=== PATIENT | female | born 1955 | race Caucasian/White ===

== ENCOUNTER 2017-11-29 16:12 | Inpatient (IN) | payer MEDICARE, MEDICAID ==
[2017-11-29] MEDS ORDERED: Influenza Vaccine 0.5 mL Syr IM ONE (17:09)
[2017-11-29] MEDS ORDERED: Levofloxacin 500mg/100mL 500 MG/100 ML BAG IV ONE ×2 (17:23→17:36)
[2017-11-29] MEDS ORDERED: Ferrous Sulfate 325 MG TAB PO ONE ×2 (17:27→17:37)
[2017-11-29 17:42] LABS: % BASOPHILS 0.5 % (0.0-2.0); % EOSINOPHILS 1.7 % (0.0-5.0); % LYMPHOCYTES 25.4 % (20.0-50.0); % NEUTROPHILS 63.4 % (40.0-80.0); EOSINOPHILE ABSOLUTE 0.1 Th/cmm (0.1-0.4); HEMATOCRIT 42.6 % (41.0-60); HEMOGLOBIN 14.1 gm/dL (12-16); LYMPHOCYTE ABSOLUTE 2.1 Th/cmm (1.5-3.0); MEAN CELL VOLUME 85.1 fl (81-100); MEAN CORPUSCULAR HEMOGLOBIN 28.1 pg (27.0-31.0); MEAN PLATELET VOLUME 9.1 fl; MONOCYTE ABSOLUTE 0.7 Th/cmm (0.3-1.0); NEUTROPHILE ABSOLUTE 5.4 Th/cmm (1.8-8.0); RED BLOOD COUNT 5.01 Mil/cmm (3.80-5.10); RED CELL DISTRIBUTION WIDTH 12.4 % (11.5-20.0); WHITE BLOOD COUNT 8.3 Th/cmm (4.8-10.8)
[2017-11-29 17:43] LABS: PLATELET COUNT 338 Th/cmm (150-400)
[2017-11-29 17:57] LABS: ALB/GLOB RATIO 1.1 (1.0-1.8); ALBUMIN 3.3 gm/dL (3.7-5.3); ALKALINE PHOSPHATASE 78 U/L (34-104); ANION GAP 9.8 (7.0-16.0); BILIRUBIN,TOTAL 0.3 mg/dL (0.3-1.0); BUN - UREA NITROGEN 18 mg/dL (7-25); CALCIUM SERUM 9.9 mg/dL (8.6-10.3); CARBON DIOXIDE 27.5 mEq/L (21.0-31.0); CHLORIDE 98 mEq/L (98-107); CREATININE - SERUM 0.6 mg/dL (0.6-1.2); GFR AFRICAN-AMERICAN > 60.0 ml/min (>90); GFR NON AFRICAN-AMERICAN > 60.0 ml/min; GLUCOSE 289 mg/dL (70-105); POTASSIUM SERUM 3.3 mEq/L (3.5-5.1); SGOT 7 U/L (13-39); SGPT/ALT 7 U/L (7-52); SODIUM SERUM 132 mEq/L (136-145); TOTAL PROTEIN,SERUM 6.3 gm/dL (6.0-8.3)
--- NOTE | 2017-11-29 18:46 | ED Physician Chart ---
ED Chief Complaint/HPI - Patient Information Date Seen:: 11/29/17 Time Seen:: 18:30 Chief Complaint:: auditory hallucinations History of Present Illness:: Patient was sent here for hearing voices which she denies. Patient's chief complaint is right leg numbness and pain for the last 2 months. A couple of days ago patient was hit above the left eyebrow by a thrown shampoo bottle. Allergies:: Allergies Allergy/AdvReac Type Severity Reaction Status Date / Time No Known Allergies Allergy Verified 09/04/16 16:50 Vitals:: Vital Signs - 8 hr 11/29/17 17:00 Temp 97.6 F HR 70 RR 18 BP 154/80 O2 Sat % 100 ED Past Medical History - Past Medical History Past Medical History: Other (bipolar and schizophrenia) Family History: Heart disease Social History: Smoker, No Alcohol, Care Facility (smokes 2 PPD and lives in [facility] and [facility]) Surgical History: other (laparotomy for swallowing half a scissors) Psychiatricy History: Schizophrenia, Bipolar Medication: Reviewed Family Medical History - Family Member Mother History Unknown: Yes Ethnicity: Living Status: Hx Family Cancer: No Hx Family Coronary Artery Disease: No Hx Family Congestive Heart Failure: No Hx Family Hypertension: No Hx Family Stroke: No Hx Family Diabetes: No Hx Family Seizures: No Hx Family Dementia: No Hx Family AIDS: No Hx Family HIV: No Hx Family COPD: No Hx Family Hepatitis: No Hx Family Psychiatric Problems: No Hx Family Tuberculosis: No ED Physical Exam - Physical Examination General/Constitutional: Alert Other Gen/Cons comments:: dishevelled; A and O to approximate date Head: Atraumatic Eyes: Lids, conjuctiva normal, PERRL Other Skin comments:: dirt noted on skin ENMT: External ears, nose nl, TM canals nl, Nasal exam nl, Oropharynx nl Other ENMT comments:: 3/4 gum retraction and peridontal disease Neck: No nuchal rigidity Respiratory: Nl effort/Exclusion, No Wheeze/Rhonchi/Rales Other Respiratory comments:: diffuse decreased breath sounds Cardio Vascular: RRR, NL S1 S2 Other Cardio Vascular comments:: 2/6 systolic murmur GI: No tenderness/rebounding/guarding, No organomegaly : No CVA tenderness Other Extremities comments:: both feet warm and dorsalis pedis pulses 3/4 Neuro/Psych: No focal deficits ED Labs/Radiology/EKG Results - Lab Results Results: Laboratory Tests 11/29/17 11/29/17 11/29/17 17:35 17:35 17:35 WBC 8.3 RBC 5.01 Hgb 14.1 Hct 42.6 MCV 85.1 MCH 28.1 MCHC Differential 33.0 RDW 12.4 Plt Count 338 D MPV 9.1 Neutrophils % 63.4 Lymphocytes % 25.4 Monocytes % 9.0 Eosinophils % 1.7 Basophils % 0.5 Sodium 132 L Potassium 3.3 L Chloride 98 Carbon Dioxide 27.5 Anion Gap 9.8 BUN 18 Creatinine 0.6 Est GFR ( Amer) > 60.0 Est GFR (Non-Af Amer) > 60.0 BUN/Creatinine Ratio 30.0 Glucose 289 H Calcium 9.9 Magnesium 1.5 L Total Bilirubin 0.3 AST 7 L ALT 7 Alkaline Phosphatase 78 B-Natriuretic Peptide Total Protein 6.3 Albumin 3.3 L Globulin 3.0 Albumin/Globulin Ratio 1.1 11/29/17 17:35 WBC RBC Hgb Hct MCV MCH MCHC Differential RDW Plt Count MPV Neutrophils % Lymphocytes % Monocytes % Eosinophils % Basophils % Sodium Potassium Chloride Carbon Dioxide Anion Gap BUN Creatinine Est GFR ( Amer) Est GFR (Non-Af Amer) BUN/Creatinine Ratio Glucose Calcium Magnesium Total Bilirubin AST ALT Alkaline Phosphatase B-Natriuretic Peptide 58.2 Total Protein Albumin Globulin Albumin/Globulin Ratio - Radiology Results Results: CXR negative - EKG Interpretations Rate & Rhythm: normal sinus rhythm with a rate of 69 [place]: normal axis Comments:: About [address] elevation in V1 and V2 ED Septic Shock - . Is Septic Shock (SBP<90, OR Lactate>4 mmol\L) present?: No - <6hrs of presentation: Vital Signs: Vital Signs - 8 hr 11/29/17 17:00 Temp 97.6 F HR 70 RR 18 BP 154/80 O2 Sat % 100 ED Reassessment (Disposition) - Reassessment Reassessment Condition:: Unchanged - Diagnosis Diagnosis:: Past auditory hallucinations; nicotine abuse; bipolar; schizophrenia - Patient Disposition Admitted to:: [facility] Admitting Medical Physician:: Hubert Sheehan Admitting Psych Physician:: Jerry Cotto Condition at Disposition:: Stable
[2017-11-29 19:03] LABS: CHOLESTEROL 141 mg/dL (<200); HDL -HIGH DENSITY LIPOPROTEIN 60 mg/dL (23-92); TRIGLYCERIDES 135 mg/dL (<150)
--- NOTE | 2017-11-29 19:33 | ER Physician Documentation ---
DATE OF SERVICE: 11/29/2017 EMERGENCY ROOM EVALUATION AND TREATMENT REPORT Female patient of 62-year-old. The patient was seen on by me Dr. Meyer in bed #6. The history is taken by me and the triage nurse, Leila, took the triage nurse history and evaluated the patient also. Thanks to him. HISTORY OF PRESENT ILLNESS: The patient to me gave a history that she is feeling weak, but she can walk to the bathroom. She is feeling weak for the past 2 weeks or so, more and more weaker. It looks like according to her, her administrator health care facility does not want her to be staying there. Her doctor's name is Dr. Mcclure and according to her, she says, Dr. Mcclure also does not want her to be coming over there. The patient came from [facility] somewhere. The patient was evaluated by the nurse, Leila. The history says that the patient is having failure to thrive. The patient is known to have diabetes mellitus. From the thing, I can see that the patient has hypertension. The patient has diabetes mellitus, hypercholesterolemia, and patient has anemia. The patient is on risperidone. The patient's vital signs were taken by the nurse showing 97.6, pulse of 70, respirations 18, blood pressure 154/80, oxygen saturation 100%, height of 5 feet 3 inches, weight 215 pounds. Last menstrual period is unknown. PAST MEDICAL HISTORY: Diabetes, hypertension, history of abdominal intestinal obstruction surgery done about 14 years ago. At one point in time, she says she was , but she does not remember much about that status. She says her brother comes and sees her. FAMILY HISTORY: Parents are . The patient has 5 brothers and 1 sister and almost everybody has diabetes and some degree of hypertension. One of the brothers comes in sees her every Wednesday according to her. CURRENT MEDICATIONS: Includes the following: Simvastatin 10 mg p.o. at bedtime, glyburide 5 mg p.o. daily, aspirin 81 mg once a day, metformin 500 mg p.o. daily, metoprolol 25 mg p.o. daily, risperidone 2 mg p.o. b.i.d., benazepril 20 mg p.o. daily, ferrous sulfate 325 mg p.o. daily. The patient's history of chief complaints is that the patient over the past 2 months was sick. For the past 2 months, the patient's right leg is weak and more weaker in the past 2 weeks. She has a walker at home, but she does not use a walker. She goes to the bathroom limping, but she does go to the bathroom. She says her upper body strength is fairly decent. She has diabetes for many many years. She has no cough, no shortness of breath. No history of pneumonia, TB, pulmonary embolism, COPD, emphysema, bronchitis. REVIEW OF SYSTEMS: EYES: No history of double vision, blurring, blindness. CENTRAL NERVOUS SYSTEM: Denied any TIA, stroke, encephalitis, meningitis. The right leg is markedly weak. She does not know for sure whether she had paralysis or CVA in the right leg. She might need a CT scan of the brain to be done to see if there is any stroke in the past or any other pathology that might be on the left side of the brain to give rise to right lower extremity paralysis. CARDIAC ALLISON: The patient has no history of angina pectoris, myocardial infarction, rheumatic fever, valvular heart disease, pericardial disease. She does not take any nitroglycerin tablets. BONES AND JOINTS: No apparent complaints except for the right lower extremity is weak. Lower extremities both are weaker. GENITOURINARY: No burning, no frequency, no dysuria. She wears diapers. DIAGNOSTIC DATA: Her EKG was done, which showed normal sinus rhythm and likely there is suggestion of left ventricular high voltage, but there is no definite hypertrophy of the left ventricle is noted. Left axis deviation has been noted. There is no cardiac arrhythmia noted in this patient. PHYSICAL EXAMINATION: GENERAL: The patient appears to be awake, alert, oriented, not in any acute or severe cardiorespiratory distress. Conjunctivae pink. Sclerae white. HEENT: Normal. The patient's right lower extremity has a power of almost half to one at the most. The patient's peripheral pulses are all good volume bounding. Pulses in upper extremities are normal. Neck veins are not distended. Jugular venous pressure is normal. Carotids are normal. without any bruit. No cyanosis, petechia, ecchymosis is noted. All the nails in upper and lower extremities are dirty. CHEST: Reveals trachea to be central. Fairly good air entry in both lungs without any rales, rhonchi, or bronchial breathing. ABDOMEN: Soft, benign. Has a midline surgical scar of previous intestinal obstruction. Liver is not enlarged. Spleen is not enlarged. No free fluid in the abdominal cavity. Bowel sounds are normal. CENTRAL NERVOUS SYSTEM: As I mentioned except for the right lower extremity weakness, the left lower extremity has slight weakness, but the right has almost power of 0-1/2. Otherwise, central nervous system is normal. CLINICAL IMPRESSION: 1. The patient presented with generalized weakness and fatigue. Not able to walk well for the past 2 months, more so over the past 2 weeks' duration and weakness in the right lower extremity for past 2 months and she is able to go to the bathroom hopping and using her left leg more than the right leg, but does not use her walker. I am not sure why. 2. The patient has diabetes mellitus and she is on oral hypoglycemic medication. She has type 2 diabetes mellitus. 3. The patient has hypertension and hypertensive heart disease. 4. The patient may be having a previous history of stroke giving rise to paralysis in the right leg. 5. The patient is allergic to Cogentin, Haldol and sulfa. 6. History of intestinal obstruction followed by surgery. 7. Hypercholesterolemia, the patient has it. 8. The patient is on risperidone, perhaps for some mental problem, that she may be a psychosis. She is allergic to sulfa meds also, Haldol and Cogentin and sulfa gives rise to rash. The patient has weakness and failure to thrive. The plan is to get all the lab workup, patient monitor, and EKG was done. All the labs has been ordered. Her current medication etc., has been ordered. Urine for culture and sensitivity has been ordered. The patient will need 1800 calorie, low cholesterol, low saturated fat diet. Urine culture was ordered. Magnesium has been ordered. Cardiac enzymes we will order and see if we can find anything. The patient has a history of smoking 2 packs of cigarettes a day, so by default she has a history of COPD. Thank you again, around 6:00 Dr. Soto will come; by that time whatever I could do, I will do it and then endorse it back to him. I will speak to the nurse about this patient also. JOB# [id number]
[2017-11-29] MEDS ORDERED: Mag Sulfate 2gm/50mL Premix 2 GM/50 ML BAG IV ONE ×2 (20:06→20:10)
[2017-11-29] MEDS ORDERED: Potassium Chloride 20 mEq ER Tab PO ONE ×2 (20:06→20:11)
[2017-11-29 22:32] LABS: URINE MICROSCOPIC INDICATED? YES; URINE SOURCE CLEAN C
[2017-11-29 22:35] LABS: URINE BILIRUBIN NEGATIVE (NEGATIVE); URINE BLOOD NEGATIVE (NEGATIVE); URINE GLUCOSE (UA) >=1000 mg/dL (NEGATIVE); URINE KETONE TRACE mg/dL (NEGATIVE); URINE LEUKOCYTE ESTERASE NEGATIVE (NEGATIVE); URINE NITRATE NEGATIVE (NEGATIVE); URINE PH 5.5 (4.6 - 8.0); URINE PROTEIN NEGATIVE (NEGATIVE); URINE UROBILINOGEN 0.2 E.U./dL (0.2 - 1.0)
[2017-11-29 22:48] LABS: URINE CLARITY CLEAR (CLEAR); URINE COLOR YELLOW
[2017-11-29 22:50] LABS: URINE RBC 0-2 /hpf (0-5)
[2017-11-29 22:51] LABS: URINE BACTERIA MODERATE /hpf (NONE SEEN); URINE EPITHELIAL CELLS MODERATE /lpf (FEW)
[2017-11-29] MEDS ORDERED: Maalox 30 mL Cup PO PRN (23:12)
[2017-11-29] MEDS ORDERED: Magnesium Hydroxide (MOM) 30 mL UDC PO PRN (23:12)
[2017-11-29] MEDS ORDERED: Albuterol Nebulizer 2.5mg/3mL HHN PRN (23:14)
[2017-11-29] MEDS ORDERED: Ipratropium Neb 0.5 mg/2.5 mL UD HHN PRN (23:14)
[2017-11-30] MEDS: INSULIN ASPART SLIDING SCALE 100 UNITS/ML UNIT SUBQ SCH ×4 (06:42→21:00)
--- NOTE | 2017-11-30 08:13 | Diagnostic Imaging Report ---
CHEST X-RAY: AP view INDICATION: Pneumonia COMPARISON: Chest x-ray 03/30/2017 FINDINGS: Chronic lung changes are seen with no focal consolidation or effusions. There is faint linear density along the right lateral lung zone possibly related to a skinfold. No gross pneumothorax identified. Heart size is normal. Degenerative changes of the spine are noted. IMPRESSION: Chronic lung changes with no focal consolidation identified. Faint linear density along the right lateral lung zone probably related to a skin fold. No gross pneumothorax is identified. If indicated short-term repeat x-ray may be obtained for further assessment.
[2017-11-30] MEDS: Ferrous Sulfate 325 MG TAB PO SCH (10:08)
[2017-11-30] MEDS: Multivitamin Tab PO SCH (10:08)
[2017-11-30 12:20] LABS: A1C % 11.7 % (4.0-6.0)
--- NOTE | 2017-11-30 17:40 | Internal Medicine Prog Note ---
Internal Medicine Subjective - Subjective Service Date: 11/30/17 ([facility] [id number]) Internal Medicine Objective - Results Result Diagrams: 11/29/17 17:35 11/29/17 17:35 Recent Labs: Laboratory Last Values WBC 8.3 Th/cmm (4.8-10.8) 11/29/17 17:35 RBC 5.01 Mil/cmm (3.80-5.10) 11/29/17 17:35 Hgb 14.1 gm/dL (12-16) 11/29/17 17:35 Hct 42.6 % (41.0-60) 11/29/17 17:35 MCV 85.1 fl (81-100) 11/29/17 17:35 MCH 28.1 pg (27.0-31.0) 11/29/17 17:35 MCHC Differential 33.0 pg (28.0-36.0) 11/29/17 17:35 RDW 12.4 % (11.5-20.0) 11/29/17 17:35 Plt Count 338 Th/cmm (150-400) D 11/29/17 17:35 MPV 9.1 fl 11/29/17 17:35 Neutrophils % 63.4 % (40.0-80.0) 11/29/17 17:35 Lymphocytes % 25.4 % (20.0-50.0) 11/29/17 17:35 Monocytes % 9.0 % (2.0-10.0) 11/29/17 17:35 Eosinophils % 1.7 % (0.0-5.0) 11/29/17 17:35 Basophils % 0.5 % (0.0-2.0) 11/29/17 17:35 Sodium 132 mEq/L (136-145) L 11/29/17 17:35 Potassium 3.3 mEq/L (3.5-5.1) L 11/29/17 17:35 Chloride 98 mEq/L (98-107) 11/29/17 17:35 Carbon Dioxide 27.5 mEq/L (21.0-31.0) 11/29/17 17:35 Anion Gap 9.8 (7.0-16.0) 11/29/17 17:35 BUN 18 mg/dL (7-25) 11/29/17 17:35 Creatinine 0.6 mg/dL (0.6-1.2) 11/29/17 17:35 Est GFR ( Amer) > 60.0 ml/min (>90) 11/29/17 17:35 Est GFR (Non-Af Amer) > 60.0 ml/min 11/29/17 17:35 BUN/Creatinine Ratio 30.0 11/29/17 17:35 Glucose 289 mg/dL (70-105) H 11/29/17 17:35 POC Glucose 287 MG/DL (70 - 105) H 11/30/17 06:02 Hemoglobin A1c % 11.7 % (4.0-6.0) H 11/29/17 17:35 Calcium 9.9 mg/dL (8.6-10.3) 11/29/17 17:35 Magnesium 1.5 mg/dL (1.9-2.7) L 11/29/17 17:35 Total Bilirubin 0.3 mg/dL (0.3-1.0) 11/29/17 17:35 AST 7 U/L (13-39) L 11/29/17 17:35 ALT 7 U/L (7-52) 11/29/17 17:35 Alkaline Phosphatase 78 U/L (34-104) 11/29/17 17:35 Troponin I 0.01 ng/mL (0.01-0.05) 11/29/17 17:35 C-Reactive Protein 0.3 mg/dL (0.0-0.9) 11/29/17 17:35 B-Natriuretic Peptide 58.2 pg/mL (5.0-100.0) 11/29/17 17:35 Total Protein 6.3 gm/dL (6.0-8.3) 11/29/17 17:35 Albumin 3.3 gm/dL (3.7-5.3) L 11/29/17 17:35 Globulin 3.0 gm/dL 11/29/17 17:35 Albumin/Globulin Ratio 1.1 (1.0-1.8) 11/29/17 17:35 Triglycerides 135 mg/dL (<150) 11/29/17 17:35 Cholesterol 141 mg/dL (<200) 11/29/17 17:35 LDL Cholesterol Direct 72 mg/dL (75-193) L 11/29/17 17:35 HDL Cholesterol 60 mg/dL (23-92) 11/29/17 17:35 TSH 3.62 uIU/ml (0.34-5.60) 11/29/17 17:35 Urine Source CLEAN C 11/29/17 21:30 Urine Color YELLOW 11/29/17 21:30 Urine Clarity CLEAR (CLEAR) 11/29/17 21:30 Urine pH 5.5 (4.6 - 8.0) 11/29/17 21:30 Ur Specific [place] >= 1.030 (1.005-1.030) 11/29/17 21:30 Urine Protein NEGATIVE mg/dL (NEGATIVE) 11/29/17 21:30 Urine Glucose (UA) >=1000 mg/dL (NEGATIVE) H 11/29/17 21:30 Urine Ketones TRACE mg/dL (NEGATIVE) 11/29/17 21:30 Urine Blood NEGATIVE (NEGATIVE) 11/29/17 21:30 Urine Nitrate NEGATIVE (NEGATIVE) 11/29/17 21:30 Urine Bilirubin NEGATIVE (NEGATIVE) 11/29/17 21:30 Urine Urobilinogen 0.2 E.U./dL (0.2 - 1.0) 11/29/17 21:30 Ur Leukocyte Esterase NEGATIVE (NEGATIVE) 11/29/17 21:30 Urine RBC 0-2 /hpf (0-5) 11/29/17 21:30 Urine WBC 10-25 /hpf (0-5) H 11/29/17 21:30 Ur Epithelial Cells MODERATE /lpf (FEW) 11/29/17 21:30 Urine Bacteria MODERATE /hpf (NONE SEEN) H 11/29/17 21:30 RPR NONREACTIVE (NONREACTIVE) 11/29/17 17:35 - Physical Exam Vitals and I&O: Vital Signs Temp 98.8 F 11/30/17 06:13 Pulse 64 11/30/17 10:07 Resp 20 11/30/17 12:40 BP 165/89 11/30/17 10:07 Pulse Ox 98 11/30/17 08:45 Intake & Output 11/29/17 11/30/17 11/30/17 18:59 06:59 18:59 Intake Total 120 Balance 120 Weight (lbs) 150 lb Intake: Oral 120 Other: # Voids 2 # Bowel Movements 0 Active Medications: Current Medications Acetaminophen (Tylenol) 650 mg PO Q4HR PRN PRN Reason: Mild Pain / Temp above 100 Stop: 01/28/18 23:11 Al Hydrox/Mg Hydrox/Simethicone (Maalox) 30 ml PO Q4HR PRN PRN Reason: GI DISTRESS Stop: 01/28/18 23:11 Albuterol Sulfate (Albuterol 2.5mg/3ml Neb Ud) 2.5 mg HHN Q4HRT PRN PRN Reason: Shortness of Breath Stop: 01/28/18 23:13 Aspirin (Aspirin) 325 mg PO DAILY [facility] Stop: 01/29/18 08:59 Last Admin: 11/30/17 10:07 Dose: 325 mg Atorvastatin Calcium (Lipitor) 80 mg PO DAILY [facility] PRN Reason: Protocol Stop: 01/29/18 08:59 Last Admin: 11/30/17 10:07 Dose: 80 mg Benazepril HCl (Lotensin) 20 mg PO DAILY [facility] Stop: 01/29/18 08:59 Last Admin: 11/30/17 10:07 Dose: 20 mg Ferrous Sulfate (Iron) 325 mg PO DAILY [facility] Stop: 01/29/18 08:59 Last Admin: 11/30/17 10:08 Dose: 325 mg Insulin Aspart (Novolog Insulin Sliding Scale) 0 units SUBQ ACHS [facility] PRN Reason: Protocol Stop: 01/29/18 07:29 Last Admin: 11/30/17 17:28 Dose: Not Given Ipratropium [place] (Atrovent Neb 0.5mg/2.5ml) 0.5 mg HHN Q4HRT PRN PRN Reason: Shortness of Breath Stop: 01/28/18 23:13 Lorazepam (Ativan) 0.5 mg PO Q4HR PRN; Protocol PRN Reason: Anxiety Stop: 12/29/17 23:11 Magnesium Hydroxide (Milk Of Magnesia) 30 ml PO HS PRN PRN Reason: Constipation Metformin HCl (Glucophage) 1,000 mg PO BID [facility] Stop: 01/29/18 08:59 Last Admin: 11/30/17 17:28 Dose: 1,000 mg Multivitamins/Vitamin C (Theragran) 1 tab PO DAILY [facility] Stop: 01/29/18 08:59 Last Admin: 11/30/17 10:08 Dose: 1 tab Risperidone (Risperdal) 0.5 mg PO BID [facility] PRN Reason: Protocol Stop: 01/29/18 16:59 Zolpidem Tartrate (Ambien) 5 mg PO HS PRN PRN Reason: Insomnia Stop: 01/28/18 23:11 Nutritional Asmnt/Malnutr-PDOC - Dietary Evaluation Malnutrition Findings (Please click <Entered> for more info): Nutritional Asmnt/Malnutrition Start: 11/30/17 15: 26 Text: Status: Complete Freq: Document 11/30/17 15:26 [email or web address] (Rec: 11/30/17 15:38 [email or web address]) Nutritional Asmnt/Malnutrition Patient General Information Nutritional Screening High Risk Diagnosis psychosis Pertinent Medical Hx/Surgical Hx bipolar, schzophreania, laparotomy for wallowing half a scissor Subjective Information Pt seen sitting in bed just finished her lunch tray at time of visit. Pt reported good appetite, likes roast beef, meatlaof, fruit, but no chicken. Spoke with RN, pt consumed 100% of breakfast this morning. Current Diet Order/ Nutrition Support CCHO low sodium, low cholersterol Pertinent Medications iron, novolog, glucophage, theragran Pertinent Labs 11/29 Na 132, K 3.3, Cl 98, BUN 18, Cr 0.6, Glucose 289, A1c 11.7, Mg 1.5, AST 7, ALT 7, Alb 3.3 11/30 POC 287 Nutritional Hx/Data Height 5 ft 5 in Height (Calculated Centimeters) 165.1 Current Weight (lbs) 150 lb Weight (Calculated Kilograms) 68.0 Weight (Calculated Grams) 45599.9 [place] Body Weight 125 % [place] Body Weight 120 Body Mass Index (BMI) 25.0 Weight Status Overweight GI Symptoms GI Symptoms None Last BM none Difficult in: None Skin Integrity/Comment: intact Estimated Nutritional Goals Calories/Kcals/Kg 25-30 Kcals Calculated [id number] based on IBW 57kg Protein g/k-1.2 Protein Calculated 57-68 Fluid: ml 1425-1710ml (1ml/kcal) Nutritional Problem 1. Problem Problem altered nutritin related lab values Etiology endocrine dysfunction and possible excessive carbohydrates intake Signs/Symptoms: Glucose 289, A1c 11.7, POC 287 Malnutrition Alert Protein-Calorie Malnutrition N/A Is there a minimum of two criteria No selected? Query Text:Check all the applicable criteria. A minimum of two criteria are recommended for diagnosis of either severe or non-severe malnutrition. Intervention/Recommendation Comments 1. Continue with [facility] diet as ordered. Encourage to limit carbohyrates intake and avoid sugar added food. Pt verbalized understanding and will follow the diet. 2. Monitor PO intake, wt, labs and skin integrity 3. F/U as low risk in 7 days, 12/07 Expected Outcomes/Goals Expected Outcomes/Goals 1. PO intake to meet at least 75% of nutritional needs. 2. Wt stability, skin to remain intact, labs to approach WNL.
--- NOTE | 2017-11-30 20:19 | History & Physical ---
ADMIT DATE: 11/30/2017 DICTATING FOR: Dr. Hubert Sheehan CHIEF COMPLAINT: Auditory hallucinations. HISTORY OF PRESENT ILLNESS: This is a 62-year-old female, is a halfway resident who was brought here to [facility] due to hearing voices. The patient is now admitted to the Geropsych Unit. PAST MEDICAL HISTORY: Bipolar, schizophrenia. FAMILY HISTORY: Noncontributory. SOCIAL HISTORY: The patient is a smoker, smokes 2 packs per day. The patient lives in a [facility]. MEDICATIONS: Please see medication reconciliation. REVIEW OF SYSTEMS: GENERAL: Denies any fevers and chills. CARDIOVASCULAR: Denies chest pain. RESPIRATORY: Denies shortness of breath. GASTROINTESTINAL: Denies nausea, vomiting, and abdominal pain. GENITOURINARY: Denies increased frequency or dysuria. All other systems are reviewed and are negative. PHYSICAL EXAMINATION: GENERAL: An elderly female, awake, alert, in no apparent distress. VITAL SIGNS: Temperature 98.8, heart rate 64, blood pressure 165/89, respirations 20, O2 98%. HEENT: Head normocephalic, atraumatic. NECK: Supple. No mass. LUNGS: Clear bilaterally. HEART: Regular rhythm. ABDOMEN: Soft, nontender. LABORATORY DATA: WBC 8.3, H and H 14.1 and 42.6, platelet of 338. Sodium 132, potassium 3.3, chloride of 98, BUN 18, creatinine 0.6, glucose of 287. ASSESSMENT: Acute UTI, hyponatremia, hypokalemia, psychosis, diabetes. PLAN: The patient to be admitted to the Geropsych Unit. We will keep the patient on a sliding scale. We will monitor the patient's glucose level. We will get repeat BMP labs for tomorrow to monitor the patient's potassium. We will continue to monitor this patient. JOB# [id number]
[2017-12-01] MEDS: INSULIN ASPART SLIDING SCALE 100 UNITS/ML UNIT SUBQ SCH ×4 (07:26→20:29)
[2017-12-01] MEDS: Ferrous Sulfate 325 MG TAB PO SCH (10:46)
[2017-12-01] MEDS: Multivitamin Tab PO SCH (10:47)
[2017-12-01 11:55] LABS: % BASOPHILS 0.7 % (0.0-2.0); % LYMPHOCYTES 15.6 % (20.0-50.0); % MONOCYTES 7.7 % (2.0-10.0); BASOPHILE ABSOLUTE 0.1 Th/cumm (0-0.2); EOSINOPHILE ABSOLUTE 0.1 Th/cmm (0.1-0.4); HEMATOCRIT 40.4 % (41.0-60); HEMOGLOBIN 13.7 gm/dL (12-16); LYMPHOCYTE ABSOLUTE 1.6 Th/cmm (1.5-3.0); MEAN CELL VOLUME 83.4 fl (81-100); MEAN CORPUSCULAR HEMOGLOBIN 28.3 pg (27.0-31.0); MEAN CORPUSCULAR HGB CONC 33.9 pg (28.0-36.0); MONOCYTE ABSOLUTE 0.8 Th/cmm (0.3-1.0); NEUTROPHILE ABSOLUTE 7.5 Th/cmm (1.8-8.0); PLATELET COUNT 298 Th/cmm (150-400); RED BLOOD COUNT 4.84 Mil/cmm (3.80-5.10); RED CELL DISTRIBUTION WIDTH 12.8 % (11.5-20.0)
[2017-12-01 11:56] LABS: WHITE BLOOD COUNT 10.1 Th/cmm (4.8-10.8)
--- NOTE | 2017-12-01 12:00 | Psychosocial Evaluation ---
DATE OF SERVICE: 11/30/2017 JUSTIFICATION FOR HOSPITALIZATION: Hearing voices, psychotic decompensation. CHIEF COMPLAINT: "I am here because of my leg and my diabetes." HISTORY OF PRESENT ILLNESS: A 62-year-old female states that she was recently discharged from [facility]; sent due to voices, psychotic decompensation, fixated on her leg numbness states she has diabetes. The patient is guarded, minimizing, not a very good historian, seems confused, disoriented, not quite sure why she is in the hospital. She denies overt depression, no anxiety, sleeping "okay." The patient was seen in the Emergency Room complaining of weakness for the past 2 weeks. Also noted failure to have thrive. PAST MEDICAL HISTORY: Diabetes, hypercholesterolemia, anemia. PAST PSYCHIATRIC HISTORY: The patient denies any psych history, but she is apparently on Risperdal. She states she has been to psychiatric hospitals before "[facility]." SOCIAL HISTORY: The patient states she is not , no kids. Denies any drugs of abuse. She has an address in [place]. MEDICATIONS: Noted. MENTAL STATUS EXAMINATION: Stated age, unkempt, fair eye contact. Speech within normal limits. Mood "just fine." Affect odd. Thought processes were disoriented. Denying any SI, no HI. The patient with voices, responding to internal stimuli. Insight poor. Judgment poor. PROVISIONAL DIAGNOSES: The patient with psychosis, unspecified; mood, unspecified; strong; rule out schizophrenia. Under medical, please see full H and P. ESTIMATED LENGTH OF STAY: 7-10 days. ASSESSMENT: The patient requiring inpatient hospitalization, psychotic decompensation, voices, seemingly confused, disoriented, unable to be cared for at a lower level of care. PLAN: We will continue to monitor. Restart Risperdal. Given the severity of her symptoms, she is not safe for discharge. CONDITIONS FOR DISCHARGE: Improved mood, improved affect, better control of her psychotic symptoms. [facility]# [id number]
[2017-12-01 12:25] LABS: ANION GAP 8.3 (7.0-16.0); BUN - UREA NITROGEN 19 mg/dL (7-25); CALCIUM SERUM 9.6 mg/dL (8.6-10.3); CARBON DIOXIDE 25.5 mEq/L (21.0-31.0); CHLORIDE 99 mEq/L (98-107); CREATININE - SERUM 0.5 mg/dL (0.6-1.2); GFR AFRICAN-AMERICAN > 60.0 ml/min (>90); GFR NON AFRICAN-AMERICAN > 60.0 ml/min; GLUCOSE 311 mg/dL (70-105); POTASSIUM SERUM 3.8 mEq/L (3.5-5.1); SODIUM SERUM 129 mEq/L (136-145)
--- NOTE | 2017-12-01 13:49 | Internal Medicine Prog Note ---
Internal Medicine Subjective - Subjective Service Date: 12/01/17 Patient seen and examined:: with staff Patient is:: awake, verbal, agitated, confused Per staff patient has:: tolerating meds Internal Medicine Objective - Results Result Diagrams: 12/01/17 11:42 12/01/17 11:42 Recent Labs: Laboratory Last Values WBC 10.1 Th/cmm (4.8-10.8) D 12/01/17 11:42 RBC 4.84 Mil/cmm (3.80-5.10) 12/01/17 11:42 Hgb 13.7 gm/dL (12-16) 12/01/17 11:42 Hct 40.4 % (41.0-60) L 12/01/17 11:42 MCV 83.4 fl (81-100) 12/01/17 11:42 MCH 28.3 pg (27.0-31.0) 12/01/17 11:42 MCHC Differential 33.9 pg (28.0-36.0) 12/01/17 11:42 RDW 12.8 % (11.5-20.0) 12/01/17 11:42 Plt Count 298 Th/cmm (150-400) 12/01/17 11:42 MPV 9.0 fl 12/01/17 11:42 Neutrophils % 75.0 % (40.0-80.0) 12/01/17 11:42 Lymphocytes % 15.6 % (20.0-50.0) L 12/01/17 11:42 Monocytes % 7.7 % (2.0-10.0) 12/01/17 11:42 Eosinophils % 1.0 % (0.0-5.0) 12/01/17 11:42 Basophils % 0.7 % (0.0-2.0) 12/01/17 11:42 Sodium 129 mEq/L (136-145) L 12/01/17 11:42 Potassium 3.8 mEq/L (3.5-5.1) 12/01/17 11:42 Chloride 99 mEq/L (98-107) 12/01/17 11:42 Carbon Dioxide 25.5 mEq/L (21.0-31.0) 12/01/17 11:42 Anion Gap 8.3 (7.0-16.0) 12/01/17 11:42 BUN 19 mg/dL (7-25) 12/01/17 11:42 Creatinine 0.5 mg/dL (0.6-1.2) L 12/01/17 11:42 Est GFR ( Amer) > 60.0 ml/min (>90) 12/01/17 11:42 Est GFR (Non-Af Amer) > 60.0 ml/min 12/01/17 11:42 BUN/Creatinine Ratio 38.0 12/01/17 11:42 Glucose 311 mg/dL (70-105) H 12/01/17 11:42 POC Glucose 287 MG/DL (70 - 105) H 11/30/17 06:02 Hemoglobin A1c % 11.7 % (4.0-6.0) H 11/29/17 17:35 Calcium 9.6 mg/dL (8.6-10.3) 12/01/17 11:42 Magnesium 1.5 mg/dL (1.9-2.7) L 11/29/17 17:35 Total Bilirubin 0.3 mg/dL (0.3-1.0) 11/29/17 17:35 AST 7 U/L (13-39) L 11/29/17 17:35 ALT 7 U/L (7-52) 11/29/17 17:35 Alkaline Phosphatase 78 U/L (34-104) 11/29/17 17:35 Troponin I 0.01 ng/mL (0.01-0.05) 11/29/17 17:35 C-Reactive Protein 0.3 mg/dL (0.0-0.9) 11/29/17 17:35 B-Natriuretic Peptide 58.2 pg/mL (5.0-100.0) 11/29/17 17:35 Total Protein 6.3 gm/dL (6.0-8.3) 11/29/17 17:35 Albumin 3.3 gm/dL (3.7-5.3) L 11/29/17 17:35 Globulin 3.0 gm/dL 11/29/17 17:35 Albumin/Globulin Ratio 1.1 (1.0-1.8) 11/29/17 17:35 Triglycerides 135 mg/dL (<150) 11/29/17 17:35 Cholesterol 141 mg/dL (<200) 11/29/17 17:35 LDL Cholesterol Direct 72 mg/dL (75-193) L 11/29/17 17:35 HDL Cholesterol 60 mg/dL (23-92) 11/29/17 17:35 TSH 3.62 uIU/ml (0.34-5.60) 11/29/17 17:35 Urine Source CLEAN C 11/29/17 21:30 Urine Color YELLOW 11/29/17 21:30 Urine Clarity CLEAR (CLEAR) 11/29/17 21:30 Urine pH 5.5 (4.6 - 8.0) 11/29/17 21:30 Ur Specific [place] >= 1.030 (1.005-1.030) 11/29/17 21:30 Urine Protein NEGATIVE mg/dL (NEGATIVE) 11/29/17 21:30 Urine Glucose (UA) >=1000 mg/dL (NEGATIVE) H 11/29/17 21:30 Urine Ketones TRACE mg/dL (NEGATIVE) 11/29/17 21:30 Urine Blood NEGATIVE (NEGATIVE) 11/29/17 21:30 Urine Nitrate NEGATIVE (NEGATIVE) 11/29/17 21:30 Urine Bilirubin NEGATIVE (NEGATIVE) 11/29/17 21:30 Urine Urobilinogen 0.2 E.U./dL (0.2 - 1.0) 11/29/17 21:30 Ur Leukocyte Esterase NEGATIVE (NEGATIVE) 11/29/17 21:30 Urine RBC 0-2 /hpf (0-5) 11/29/17 21:30 Urine WBC 10-25 /hpf (0-5) H 11/29/17 21:30 Ur Epithelial Cells MODERATE /lpf (FEW) 11/29/17 21:30 Urine Bacteria MODERATE /hpf (NONE SEEN) H 11/29/17 21:30 RPR NONREACTIVE (NONREACTIVE) 11/29/17 17:35 - Physical Exam Vitals and I&O: Vital Signs Temp 98.7 F 12/01/17 06:05 Pulse 67 12/01/17 10:44 Resp 18 12/01/17 07:38 BP 131/81 12/01/17 10:44 Pulse Ox 100 12/01/17 07:38 Intake & Output 11/30/17 12/01/17 12/01/17 18:59 06:59 18:59 Intake Total 950 300 Balance 950 300 Intake: Oral 950 300 Other: # Voids 4 1 # Bowel Movements 1 0 Stool Characteristics Soft Soft Active Medications: Current Medications Acetaminophen (Tylenol) 650 mg PO Q4HR PRN PRN Reason: Mild Pain / Temp above 100 Stop: 01/28/18 23:11 Al Hydrox/Mg Hydrox/Simethicone (Maalox) 30 ml PO Q4HR PRN PRN Reason: GI DISTRESS Stop: 01/28/18 23:11 Albuterol Sulfate (Albuterol 2.5mg/3ml Neb Ud) 2.5 mg HHN Q4HRT PRN PRN Reason: Shortness of Breath Stop: 01/28/18 23:13 Aspirin (Aspirin) 325 mg PO DAILY [facility] Stop: 01/29/18 08:59 Last Admin: 12/01/17 10:44 Dose: Not Given Atorvastatin Calcium (Lipitor) 80 mg PO DAILY [facility] PRN Reason: Protocol Stop: 01/29/18 08:59 Last Admin: 12/01/17 10:44 Dose: Not Given Benazepril HCl (Lotensin) 20 mg PO DAILY [facility] Stop: 01/29/18 08:59 Last Admin: 12/01/17 10:44 Dose: Not Given Ferrous Sulfate (Iron) 325 mg PO DAILY [facility] Stop: 01/29/18 08:59 Last Admin: 12/01/17 10:46 Dose: Not Given Insulin Aspart (Novolog Insulin Sliding Scale) 0 units SUBQ ACHS [place] PRN Reason: Protocol Stop: 01/29/18 07:29 Last Admin: 12/01/17 07:26 Dose: 2 units Ipratropium [place] (Atrovent Neb 0.5mg/2.5ml) 0.5 mg HHN Q4HRT PRN PRN Reason: Shortness of Breath Stop: 01/28/18 23:13 Lorazepam (Ativan) 0.5 mg PO Q4HR PRN; Protocol PRN Reason: Anxiety Stop: 12/29/17 23:11 Magnesium Hydroxide (Milk Of Magnesia) 30 ml PO HS PRN PRN Reason: Constipation Metformin HCl (Glucophage) 1,000 mg PO BID [facility] Stop: 01/29/18 08:59 Last Admin: 12/01/17 10:46 Dose: Not Given Multivitamins/Vitamin C (Theragran) 1 tab PO DAILY [facility] Stop: 01/29/18 08:59 Last Admin: 12/01/17 10:47 Dose: Not Given Risperidone (Risperdal) 0.5 mg PO BID [facility] PRN Reason: Protocol Stop: 01/29/18 16:59 Zolpidem Tartrate (Ambien) 5 mg PO HS PRN PRN Reason: Insomnia Stop: 01/28/18 23:11 General: alert HEENT: NC/AT, PERRLA Neck: Supple Lungs: CTAB Cardiovascular: RRR, Normal S1, Normal S2, without murmur Abdomen: soft, non-tender, non-distended, positive bowel sound Extremities: excoriation Neurological: alert Internal Medicine Assmt/Plan - Assessment Assessment: acute uti psychosis diabetes - Plan Plan: will add accucheck and levaquin x 7 days continue current plan of care Nutritional Asmnt/Malnutr-PDOC - Dietary Evaluation Malnutrition Findings (Please click <Entered> for more info): Nutritional Asmnt/Malnutrition Start: 11/30/17 15: 26 Text: Status: Complete Freq: Document 11/30/17 15:26 [facility] (Rec: 11/30/17 15:38 HEN [email or web address]) Nutritional Asmnt/Malnutrition Patient General Information Nutritional Screening High Risk Diagnosis psychosis Pertinent Medical Hx/Surgical Hx bipolar, schzophreania, laparotomy for wallowing half a scissor Subjective Information Pt seen sitting in bed just finished her lunch tray at time of visit. Pt reported good appetite, likes roast beef, meatlaof, fruit, but no chicken. Spoke with RN, pt consumed 100% of breakfast this morning. Current Diet Order/ Nutrition Support CCHO low sodium, low cholersterol Pertinent Medications iron, novolog, glucophage, theragran Pertinent Labs 11/29 Na 132, K 3.3, Cl 98, BUN 18, Cr 0.6, Glucose 289, A1c 11.7, Mg 1.5, AST 7, ALT 7, Alb 3.3 11/30 POC 287 Nutritional Hx/Data Height 5 ft 5 in Height (Calculated Centimeters) 165.1 Current Weight (lbs) 150 lb Weight (Calculated Kilograms) 68.0 Weight (Calculated Grams) 11632.9 [place] Body Weight 125 % [place] Body Weight 120 Body Mass Index (BMI) 25.0 Weight Status Overweight GI Symptoms GI Symptoms None Last BM none Difficult in: None Skin Integrity/Comment: intact Estimated Nutritional Goals Calories/Kcals/Kg 25-30 Kcals Calculated 3193-4922 based on IBW 57kg Protein g/k-1.2 Protein Calculated 57-68 Fluid: ml 1425-1710ml (1ml/kcal) Nutritional Problem 1. Problem Problem altered nutritin related lab values Etiology endocrine dysfunction and possible excessive carbohydrates intake Signs/Symptoms: Glucose 289, A1c 11.7, POC 287 Malnutrition Alert Protein-Calorie Malnutrition N/A Is there a minimum of two criteria No selected? Query Text:Check all the applicable criteria. A minimum of two criteria are recommended for diagnosis of either severe or non-severe malnutrition. Intervention/Recommendation Comments 1. Continue with [facility] diet as ordered. Encourage to limit carbohyrates intake and avoid sugar added food. Pt verbalized understanding and will follow the diet. 2. Monitor PO intake, wt, labs and skin integrity 3. F/U as low risk in 7 days, 12/07 Expected Outcomes/Goals Expected Outcomes/Goals 1. PO intake to meet at least 75% of nutritional needs. 2. Wt stability, skin to remain intact, labs to approach WNL.
--- NOTE | 2017-12-02 02:24 | Progress Notes ---
DATE: 12/01/2017 SUBJECTIVE: The patient is currently in the hospital, apparently hearing voices with psychotic decompensation. The patient remains confused and believes she is in the hospital for diabetes, states her mood is "terrible." The patient noted to be labile, sometimes intrusive, demanding, unruly at times, disoriented, unable to really tell me much about her history or where she is coming from. Still with voices mumbling to self. MEDICATIONS: Reviewed including dosages and frequencies. ASSESSMENT: The patient remains unruly, labile, still with behavioral disturbances. PLAN: We will continue to monitor. Continue Risperdal. Given ongoing symptoms, she is not safe for discharge at this time. [facility]# [id number]
[2017-12-02] MEDS: INSULIN ASPART SLIDING SCALE 100 UNITS/ML UNIT SUBQ SCH ×4 (07:03→20:55)
[2017-12-02] MEDS: Multivitamin Tab PO SCH (08:22)
[2017-12-02] MEDS: Ferrous Sulfate 325 MG TAB PO SCH (08:22)
[2017-12-02] MEDS ORDERED: Probiotic Screen MC PRN (10:15)
--- NOTE | 2017-12-02 12:34 | Diagnostic Imaging Report ---
EXAM: Doppler ultrasound examination of the lower extremities. HISTORY: DVT FINDINGS: Real-time ultrasound examination of lower extremities was performed utilizing color Doppler technique. The study demonstrates normal compressibility and augmentation of deep venous system throughout. IMPRESSION: No evidence for deep venous thrombosis lower extremities bilaterally.
--- NOTE | 2017-12-02 13:33 | Internal Medicine Prog Note ---
Internal Medicine Subjective - Subjective Service Date: 12/02/17 (patient c/o numbess legs patient able to feel tapping on both legs, may due to diabetes) Patient is:: awake, verbal, agitated, confused Per staff patient has:: tolerating meds Internal Medicine Objective - Results Result Diagrams: 12/01/17 11:42 12/01/17 11:42 Recent Labs: Laboratory Last Values WBC 10.1 Th/cmm (4.8-10.8) D 12/01/17 11:42 RBC 4.84 Mil/cmm (3.80-5.10) 12/01/17 11:42 Hgb 13.7 gm/dL (12-16) 12/01/17 11:42 Hct 40.4 % (41.0-60) L 12/01/17 11:42 MCV 83.4 fl (81-100) 12/01/17 11:42 MCH 28.3 pg (27.0-31.0) 12/01/17 11:42 MCHC Differential 33.9 pg (28.0-36.0) 12/01/17 11:42 RDW 12.8 % (11.5-20.0) 12/01/17 11:42 Plt Count 298 Th/cmm (150-400) 12/01/17 11:42 MPV 9.0 fl 12/01/17 11:42 Neutrophils % 75.0 % (40.0-80.0) 12/01/17 11:42 Lymphocytes % 15.6 % (20.0-50.0) L 12/01/17 11:42 Monocytes % 7.7 % (2.0-10.0) 12/01/17 11:42 Eosinophils % 1.0 % (0.0-5.0) 12/01/17 11:42 Basophils % 0.7 % (0.0-2.0) 12/01/17 11:42 Sodium 129 mEq/L (136-145) L 12/01/17 11:42 Potassium 3.8 mEq/L (3.5-5.1) 12/01/17 11:42 Chloride 99 mEq/L (98-107) 12/01/17 11:42 Carbon Dioxide 25.5 mEq/L (21.0-31.0) 12/01/17 11:42 Anion Gap 8.3 (7.0-16.0) 12/01/17 11:42 BUN 19 mg/dL (7-25) 12/01/17 11:42 Creatinine 0.5 mg/dL (0.6-1.2) L 12/01/17 11:42 Est GFR ( Amer) > 60.0 ml/min (>90) 12/01/17 11:42 Est GFR (Non-Af Amer) > 60.0 ml/min 12/01/17 11:42 BUN/Creatinine Ratio 38.0 12/01/17 11:42 Glucose 311 mg/dL (70-105) H 12/01/17 11:42 POC Glucose 182 MG/DL (70 - 105) H 12/01/17 06:23 Hemoglobin A1c % 11.7 % (4.0-6.0) H 11/29/17 17:35 Calcium 9.6 mg/dL (8.6-10.3) 12/01/17 11:42 Magnesium 1.5 mg/dL (1.9-2.7) L 11/29/17 17:35 Total Bilirubin 0.3 mg/dL (0.3-1.0) 11/29/17 17:35 AST 7 U/L (13-39) L 11/29/17 17:35 ALT 7 U/L (7-52) 11/29/17 17:35 Alkaline Phosphatase 78 U/L (34-104) 11/29/17 17:35 Troponin I 0.01 ng/mL (0.01-0.05) 11/29/17 17:35 C-Reactive Protein 0.3 mg/dL (0.0-0.9) 11/29/17 17:35 B-Natriuretic Peptide 58.2 pg/mL (5.0-100.0) 11/29/17 17:35 Total Protein 6.3 gm/dL (6.0-8.3) 11/29/17 17:35 Albumin 3.3 gm/dL (3.7-5.3) L 11/29/17 17:35 Globulin 3.0 gm/dL 11/29/17 17:35 Albumin/Globulin Ratio 1.1 (1.0-1.8) 11/29/17 17:35 Triglycerides 135 mg/dL (<150) 11/29/17 17:35 Cholesterol 141 mg/dL (<200) 11/29/17 17:35 LDL Cholesterol Direct 72 mg/dL (75-193) L 11/29/17 17:35 HDL Cholesterol 60 mg/dL (23-92) 11/29/17 17:35 TSH 3.62 uIU/ml (0.34-5.60) 11/29/17 17:35 Urine Source CLEAN C 11/29/17 21:30 Urine Color YELLOW 11/29/17 21:30 Urine Clarity CLEAR (CLEAR) 11/29/17 21:30 Urine pH 5.5 (4.6 - 8.0) 11/29/17 21:30 Ur Specific [place] >= 1.030 (1.005-1.030) 11/29/17 21:30 Urine Protein NEGATIVE mg/dL (NEGATIVE) 11/29/17 21:30 Urine Glucose (UA) >=1000 mg/dL (NEGATIVE) H 11/29/17 21:30 Urine Ketones TRACE mg/dL (NEGATIVE) 11/29/17 21:30 Urine Blood NEGATIVE (NEGATIVE) 11/29/17 21:30 Urine Nitrate NEGATIVE (NEGATIVE) 11/29/17 21:30 Urine Bilirubin NEGATIVE (NEGATIVE) 11/29/17 21:30 Urine Urobilinogen 0.2 E.U./dL (0.2 - 1.0) 11/29/17 21:30 Ur Leukocyte Esterase NEGATIVE (NEGATIVE) 11/29/17 21:30 Urine RBC 0-2 /hpf (0-5) 11/29/17 21:30 Urine WBC 10-25 /hpf (0-5) H 11/29/17 21:30 Ur Epithelial Cells MODERATE /lpf (FEW) 11/29/17 21:30 Urine Bacteria MODERATE /hpf (NONE SEEN) H 11/29/17 21:30 RPR NONREACTIVE (NONREACTIVE) 11/29/17 17:35 - Physical Exam Vitals and I&O: Vital Signs Temp 97.7 F 12/02/17 06:23 Pulse 62 12/02/17 08:22 Resp 18 12/02/17 08:10 BP 145/82 12/02/17 08:22 Pulse Ox 98 12/02/17 08:10 Intake & Output 12/01/17 12/02/17 12/02/17 18:59 06:59 18:59 Intake Total 1800 120 Balance 1800 120 Intake: Oral 1800 120 Other: # Voids 4 3 # Bowel Movements 1 Stool Characteristics Soft Soft Soft Active Medications: Current Medications Acetaminophen (Tylenol) 650 mg PO Q4HR PRN PRN Reason: Mild Pain / Temp above 100 Stop: 01/28/18 23:11 Last Admin: 12/01/17 20:26 Dose: 650 mg Al Hydrox/Mg Hydrox/Simethicone (Maalox) 30 ml PO Q4HR PRN PRN Reason: GI DISTRESS Stop: 01/28/18 23:11 Albuterol Sulfate (Albuterol 2.5mg/3ml Neb Ud) 2.5 mg HHN Q4HRT PRN PRN Reason: Shortness of Breath Stop: 01/28/18 23:13 Aspirin (Aspirin) 325 mg PO DAILY [facility] Stop: 01/29/18 08:59 Last Admin: 12/02/17 08:23 Dose: 325 mg Atorvastatin Calcium (Lipitor) 80 mg PO DAILY [facility] PRN Reason: Protocol Stop: 01/29/18 08:59 Last Admin: 12/02/17 08:22 Dose: 80 mg Benazepril HCl (Lotensin) 20 mg PO DAILY [facility] Stop: 01/29/18 08:59 Last Admin: 12/02/17 08:22 Dose: 20 mg Ferrous Sulfate (Iron) 325 mg PO DAILY [facility] Stop: 01/29/18 08:59 Last Admin: 12/02/17 08:22 Dose: 325 mg Insulin Aspart (Novolog Insulin Sliding Scale) 0 units SUBQ ACHS [facility] PRN Reason: Protocol Stop: 01/29/18 07:29 Last Admin: 12/02/17 11:26 Dose: Not Given Ipratropium [place] (Atrovent Neb 0.5mg/2.5ml) 0.5 mg HHN Q4HRT PRN PRN Reason: Shortness of Breath Stop: 01/28/18 23:13 Lactobacillus Rhamnosus (Culturelle 15b) 1 each PO DAILY [facility] Stop: 02/01/18 08:59 Levofloxacin (Levaquin) 500 mg PO DAILY [facility] Stop: 12/09/17 08:59 Last Admin: 12/02/17 08:22 Dose: 500 mg Lorazepam (Ativan) 0.5 mg PO Q4HR PRN; Protocol PRN Reason: Anxiety Stop: 12/29/17 23:11 Magnesium Hydroxide (Milk Of Magnesia) 30 ml PO HS PRN PRN Reason: Constipation Metformin HCl (Glucophage) 1,000 mg PO BID [facility] Stop: 01/29/18 08:59 Last Admin: 12/02/17 08:22 Dose: 1,000 mg Miscellaneous (Probiotic Screen) 1 ea [facility] PRN PRN PRN Reason: PROTOCOL Stop: 01/31/18 10:14 Multivitamins/Vitamin C (Theragran) 1 tab PO DAILY [facility] Stop: 01/29/18 08:59 Last Admin: 12/02/17 08:22 Dose: 1 tab Risperidone (Risperdal) 1 mg PO BID [facility] PRN Reason: Protocol Stop: 01/31/18 08:38 Last Admin: 12/02/17 08:22 Dose: Not Given Zolpidem Tartrate (Ambien) 5 mg PO HS PRN PRN Reason: Insomnia Stop: 01/28/18 23:11 General: alert HEENT: NC/AT, PERRLA Neck: Supple Lungs: CTAB Cardiovascular: RRR, Normal S1, Normal S2, without murmur Abdomen: soft, non-tender, non-distended, positive bowel sound Extremities: excoriation Neurological: alert Internal Medicine Assmt/Plan - Assessment Assessment: acute uti psychosis diabetes peripheral neuropathy - Plan Plan: venous doppler negative neurology stroke physician to see patient continue current plan of care Nutritional Asmnt/Malnutr-PDOC - Dietary Evaluation Malnutrition Findings (Please click <Entered> for more info): Nutritional Asmnt/Malnutrition Start: 11/30/17 15: 26 Text: Status: Complete Freq: Document 11/30/17 15:26 [facility] (Rec: 11/30/17 15:38 LCH[facility] [email or web address]) Nutritional Asmnt/Malnutrition Patient General Information Nutritional Screening High Risk Diagnosis psychosis Pertinent Medical Hx/Surgical Hx bipolar, schzophreania, laparotomy for wallowing half a scissor Subjective Information Pt seen sitting in bed just finished her lunch tray at time of visit. Pt reported good appetite, likes roast beef, meatlaof, fruit, but no chicken. Spoke with RN, pt consumed 100% of breakfast this morning. Current Diet Order/ Nutrition Support CCHO low sodium, low cholersterol Pertinent Medications iron, novolog, glucophage, theragran Pertinent Labs 11/29 Na 132, K 3.3, Cl 98, BUN 18, Cr 0.6, Glucose 289, A1c 11.7, Mg 1.5, AST 7, ALT 7, Alb 3.3 11/30 POC 287 Nutritional Hx/Data Height 5 ft 5 in Height (Calculated Centimeters) 165.1 Current Weight (lbs) 150 lb Weight (Calculated Kilograms) 68.0 Weight (Calculated Grams) 39012.9 [place] Body Weight 125 % [place] Body Weight 120 Body Mass Index (BMI) 25.0 Weight Status Overweight GI Symptoms GI Symptoms None Last BM none Difficult in: None Skin Integrity/Comment: intact Estimated Nutritional Goals Calories/Kcals/Kg 25-30 Kcals Calculated 7896-3532 based on IBW 57kg Protein g/k-1.2 Protein Calculated 57-68 Fluid: ml 1425-1710ml (1ml/kcal) Nutritional Problem 1. Problem Problem altered nutritin related lab values Etiology endocrine dysfunction and possible excessive carbohydrates intake Signs/Symptoms: Glucose 289, A1c 11.7, POC 287 Malnutrition Alert Protein-Calorie Malnutrition N/A Is there a minimum of two criteria No selected? Query Text:Check all the applicable criteria. A minimum of two criteria are recommended for diagnosis of either severe or non-severe malnutrition. Intervention/Recommendation Comments 1. Continue with [facility] diet as ordered. Encourage to limit carbohyrates intake and avoid sugar added food. Pt verbalized understanding and will follow the diet. 2. Monitor PO intake, wt, labs and skin integrity 3. F/U as low risk in 7 days, 12/07 Expected Outcomes/Goals Expected Outcomes/Goals 1. PO intake to meet at least 75% of nutritional needs. 2. Wt stability, skin to remain intact, labs to approach WNL.
--- NOTE | 2017-12-03 01:39 | Progress Notes ---
DATE: 12/02/2017 SUBJECTIVE: The patient was seen, chart reviewed, discussed with staff. The patient upset, tearful, still labile, at times intrusive, demanding, unruly, still seems to be responding to internal stimuli, still with ongoing psychotic symptoms. She is fairly occlusive, requiring prompting also with poor ADLs, still seems to be symptomatic in regards to her psychosis and upset. ASSESSMENT: The patient remains labile, still upset, intrusive, still seems to be with evidence of psychosis, internally preoccupied. 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 PLAN: We will continue to monitor, increase Risperdal today. Given her ongoing symptoms, she is not safe for discharge. [facility]# [id number]
[2017-12-03] MEDS: INSULIN ASPART SLIDING SCALE 100 UNITS/ML UNIT SUBQ SCH ×4 (06:41→21:41)
[2017-12-03] MEDS: Lactobacillus Rhamnosus GG 15 Billion CFU CAP.SPRINK PO SCH (09:50)
[2017-12-03] MEDS: Multivitamin Tab PO SCH (09:51)
[2017-12-03] MEDS: Ferrous Sulfate 325 MG TAB PO SCH (09:51)
--- NOTE | 2017-12-03 14:09 | Internal Medicine Prog Note ---
Internal Medicine Subjective - Subjective Service Date: 12/03/17 Patient is:: awake, verbal, agitated, confused Per staff patient has:: tolerating meds Internal Medicine Objective - Results Result Diagrams: 12/01/17 11:42 12/01/17 11:42 Recent Labs: Laboratory Last Values WBC 10.1 Th/cmm (4.8-10.8) D 12/01/17 11:42 RBC 4.84 Mil/cmm (3.80-5.10) 12/01/17 11:42 Hgb 13.7 gm/dL (12-16) 12/01/17 11:42 Hct 40.4 % (41.0-60) L 12/01/17 11:42 MCV 83.4 fl (81-100) 12/01/17 11:42 MCH 28.3 pg (27.0-31.0) 12/01/17 11:42 MCHC Differential 33.9 pg (28.0-36.0) 12/01/17 11:42 RDW 12.8 % (11.5-20.0) 12/01/17 11:42 Plt Count 298 Th/cmm (150-400) 12/01/17 11:42 MPV 9.0 fl 12/01/17 11:42 Neutrophils % 75.0 % (40.0-80.0) 12/01/17 11:42 Lymphocytes % 15.6 % (20.0-50.0) L 12/01/17 11:42 Monocytes % 7.7 % (2.0-10.0) 12/01/17 11:42 Eosinophils % 1.0 % (0.0-5.0) 12/01/17 11:42 Basophils % 0.7 % (0.0-2.0) 12/01/17 11:42 Sodium 129 mEq/L (136-145) L 12/01/17 11:42 Potassium 3.8 mEq/L (3.5-5.1) 12/01/17 11:42 Chloride 99 mEq/L (98-107) 12/01/17 11:42 Carbon Dioxide 25.5 mEq/L (21.0-31.0) 12/01/17 11:42 Anion Gap 8.3 (7.0-16.0) 12/01/17 11:42 BUN 19 mg/dL (7-25) 12/01/17 11:42 Creatinine 0.5 mg/dL (0.6-1.2) L 12/01/17 11:42 Est GFR ( Amer) > 60.0 ml/min (>90) 12/01/17 11:42 Est GFR (Non-Af Amer) > 60.0 ml/min 12/01/17 11:42 BUN/Creatinine Ratio 38.0 12/01/17 11:42 Glucose 311 mg/dL (70-105) H 12/01/17 11:42 POC Glucose 262 MG/DL (70 - 105) H 12/03/17 11:14 Hemoglobin A1c % 11.7 % (4.0-6.0) H 11/29/17 17:35 Calcium 9.6 mg/dL (8.6-10.3) 12/01/17 11:42 Magnesium 1.5 mg/dL (1.9-2.7) L 11/29/17 17:35 Total Bilirubin 0.3 mg/dL (0.3-1.0) 11/29/17 17:35 AST 7 U/L (13-39) L 11/29/17 17:35 ALT 7 U/L (7-52) 11/29/17 17:35 Alkaline Phosphatase 78 U/L (34-104) 11/29/17 17:35 Troponin I 0.01 ng/mL (0.01-0.05) 11/29/17 17:35 C-Reactive Protein 0.3 mg/dL (0.0-0.9) 11/29/17 17:35 B-Natriuretic Peptide 58.2 pg/mL (5.0-100.0) 11/29/17 17:35 Total Protein 6.3 gm/dL (6.0-8.3) 11/29/17 17:35 Albumin 3.3 gm/dL (3.7-5.3) L 11/29/17 17:35 Globulin 3.0 gm/dL 11/29/17 17:35 Albumin/Globulin Ratio 1.1 (1.0-1.8) 11/29/17 17:35 Triglycerides 135 mg/dL (<150) 11/29/17 17:35 Cholesterol 141 mg/dL (<200) 11/29/17 17:35 LDL Cholesterol Direct 72 mg/dL (75-193) L 11/29/17 17:35 HDL Cholesterol 60 mg/dL (23-92) 11/29/17 17:35 TSH 3.62 uIU/ml (0.34-5.60) 11/29/17 17:35 Urine Source CLEAN C 11/29/17 21:30 Urine Color YELLOW 11/29/17 21:30 Urine Clarity CLEAR (CLEAR) 11/29/17 21:30 Urine pH 5.5 (4.6 - 8.0) 11/29/17 21:30 Ur Specific [place] >= 1.030 (1.005-1.030) 11/29/17 21:30 Urine Protein NEGATIVE mg/dL (NEGATIVE) 11/29/17 21:30 Urine Glucose (UA) >=1000 mg/dL (NEGATIVE) H 11/29/17 21:30 Urine Ketones TRACE mg/dL (NEGATIVE) 11/29/17 21:30 Urine Blood NEGATIVE (NEGATIVE) 11/29/17 21:30 Urine Nitrate NEGATIVE (NEGATIVE) 11/29/17 21:30 Urine Bilirubin NEGATIVE (NEGATIVE) 11/29/17 21:30 Urine Urobilinogen 0.2 E.U./dL (0.2 - 1.0) 11/29/17 21:30 Ur Leukocyte Esterase NEGATIVE (NEGATIVE) 11/29/17 21:30 Urine RBC 0-2 /hpf (0-5) 11/29/17 21:30 Urine WBC 10-25 /hpf (0-5) H 11/29/17 21:30 Ur Epithelial Cells MODERATE /lpf (FEW) 11/29/17 21:30 Urine Bacteria MODERATE /hpf (NONE SEEN) H 11/29/17 21:30 RPR NONREACTIVE (NONREACTIVE) 11/29/17 17:35 - Physical Exam Vitals and I&O: Vital Signs Temp 97.4 F 12/03/17 06:20 Pulse 74 12/03/17 09:50 Resp 18 12/03/17 06:20 BP 137/71 12/03/17 09:50 Pulse Ox 97 12/03/17 06:20 Intake & Output 12/02/17 12/03/17 12/03/17 18:59 06:59 18:59 Intake Total 1200 120 Balance 1200 120 Intake: Oral 1200 120 Other: # Voids 3 3 # Bowel Movements 1 Stool Characteristics Soft Soft Soft Active Medications: Current Medications Acetaminophen (Tylenol) 650 mg PO Q4HR PRN PRN Reason: Mild Pain / Temp above 100 Stop: 01/28/18 23:11 Last Admin: 12/01/17 20:26 Dose: 650 mg Al Hydrox/Mg Hydrox/Simethicone (Maalox) 30 ml PO Q4HR PRN PRN Reason: GI DISTRESS Stop: 01/28/18 23:11 Albuterol Sulfate (Albuterol 2.5mg/3ml Neb Ud) 2.5 mg HHN Q4HRT PRN PRN Reason: Shortness of Breath Stop: 01/28/18 23:13 Aspirin (Aspirin) 325 mg PO DAILY [facility] Stop: 01/29/18 08:59 Last Admin: 12/03/17 09:51 Dose: 325 mg Atorvastatin Calcium (Lipitor) 80 mg PO DAILY [facility] PRN Reason: Protocol Stop: 01/29/18 08:59 Last Admin: 12/03/17 09:51 Dose: 80 mg Benazepril HCl (Lotensin) 20 mg PO DAILY [facility] Stop: 01/29/18 08:59 Last Admin: 12/03/17 09:50 Dose: 20 mg Ferrous Sulfate (Iron) 325 mg PO DAILY [facility] Stop: 01/29/18 08:59 Last Admin: 12/03/17 09:51 Dose: 325 mg Insulin Aspart (Novolog Insulin Sliding Scale) 0 units SUBQ ACHS [facility] PRN Reason: Protocol Stop: 01/29/18 07:29 Last Admin: 12/03/17 11:26 Dose: 6 units Ipratropium [place] (Atrovent Neb 0.5mg/2.5ml) 0.5 mg HHN Q4HRT PRN PRN Reason: Shortness of Breath Stop: 01/28/18 23:13 Lactobacillus Rhamnosus (Culturelle 15b) 1 each PO DAILY [facility] Stop: 02/01/18 08:59 Last Admin: 12/03/17 09:50 Dose: 1 each Levofloxacin (Levaquin) 500 mg PO DAILY [facility] Stop: 12/09/17 08:59 Last Admin: 12/03/17 09:50 Dose: 500 mg Lorazepam (Ativan) 0.5 mg PO Q4HR PRN; Protocol PRN Reason: Anxiety Stop: 12/29/17 23:11 Magnesium Hydroxide (Milk Of Magnesia) 30 ml PO HS PRN PRN Reason: Constipation Metformin HCl (Glucophage) 1,000 mg PO BID [facility] Stop: 01/29/18 08:59 Last Admin: 12/03/17 09:51 Dose: 1,000 mg Mirtazapine (Remeron) 7.5 mg PO HS [facility] PRN Reason: Protocol Stop: 02/01/18 20:59 Miscellaneous (Probiotic Screen) 1 ea MC PRN PRN PRN Reason: PROTOCOL Stop: 01/31/18 10:14 Multivitamins/Vitamin C (Theragran) 1 tab PO DAILY [facility] Stop: 01/29/18 08:59 Last Admin: 12/03/17 09:51 Dose: 1 tab Risperidone (Risperdal) 1 mg PO BID [facility] PRN Reason: Protocol Stop: 01/31/18 08:38 Last Admin: 12/03/17 09:51 Dose: 1 mg Zolpidem Tartrate (Ambien) 5 mg PO HS PRN PRN Reason: Insomnia Stop: 01/28/18 23:11 General: alert HEENT: NC/AT, PERRLA Neck: Supple Lungs: CTAB Cardiovascular: RRR, Normal S1, Normal S2, without murmur Abdomen: soft, non-tender, non-distended, positive bowel sound Extremities: excoriation Neurological: alert Internal Medicine Assmt/Plan - Assessment Assessment: acute uti psychosis diabetes peripheral neuropathy - Plan Plan: fall precautions monitor glucose level continue current plan of care Nutritional Asmnt/Malnutr-PDOC - Dietary Evaluation Malnutrition Findings (Please click <Entered> for more info): Nutritional Asmnt/Malnutrition Start: 11/30/17 15: 26 Text: Status: Complete Freq: Document 11/30/17 15:26 LCHENG (Rec: 11/30/17 15:38 LCHENG [email or web address]) Nutritional Asmnt/Malnutrition Patient General Information Nutritional Screening High Risk Diagnosis psychosis Pertinent Medical Hx/Surgical Hx bipolar, schzophreania, laparotomy for wallowing half a scissor Subjective Information Pt seen sitting in bed just finished her lunch tray at time of visit. Pt reported good appetite, likes roast beef, meatlaof, fruit, but no chicken. Spoke with RN, pt consumed 100% of breakfast this morning. Current Diet Order/ Nutrition Support [facility] low sodium, low cholersterol Pertinent Medications iron, novolog, glucophage, theragran Pertinent Labs 11/29 Na 132, K 3.3, Cl 98, BUN 18, Cr 0.6, Glucose 289, A1c 11.7, Mg 1.5, AST 7, ALT 7, Alb 3.3 11/30 POC 287 Nutritional Hx/Data Height 5 ft 5 in Height (Calculated Centimeters) 165.1 Current Weight (lbs) 150 lb Weight (Calculated Kilograms) 68.0 Weight (Calculated Grams) 49649.9 [place] Body Weight 125 % [place] Body Weight 120 Body Mass Index (BMI) 25.0 Weight Status Overweight GI Symptoms GI Symptoms None Last BM none Difficult in: None Skin Integrity/Comment: intact Estimated Nutritional Goals Calories/Kcals/Kg 25-30 Kcals Calculated 5596-0297 based on IBW 57kg Protein g/k-1.2 Protein Calculated 57-68 Fluid: ml 1425-1710ml (1ml/kcal) Nutritional Problem 1. Problem Problem altered nutritin related lab values Etiology endocrine dysfunction and possible excessive carbohydrates intake Signs/Symptoms: Glucose 289, A1c 11.7, POC 287 Malnutrition Alert Protein-Calorie Malnutrition N/A Is there a minimum of two criteria No selected? Query Text:Check all the applicable criteria. A minimum of two criteria are recommended for diagnosis of either severe or non-severe malnutrition. Intervention/Recommendation Comments 1. Continue with [facility] diet as ordered. Encourage to limit carbohyrates intake and avoid sugar added food. Pt verbalized understanding and will follow the diet. 2. Monitor PO intake, wt, labs and skin integrity 3. F/U as low risk in 7 days, 12/07 Expected Outcomes/Goals Expected Outcomes/Goals 1. PO intake to meet at least 75% of nutritional needs. 2. Wt stability, skin to remain intact, labs to approach WNL.
--- NOTE | 2017-12-03 23:28 | Progress Notes ---
DATE: 12/03/[address] Cotto. Case was discussed with staff of patient, reviewed records. This is a 63-year-old female who was admitted on 11/30/2017 because she believes she is here because of her leg and diabetes. She was recently discharged from [facility] because of voices, psychotic decompensation, fixated on leg symptoms and numbness. The patient is guarded, minimizing, not a very good historian, confused, disoriented, do not know why she was in the hospital. She denied overt depression, anxiety, sleeping okay. The patient was seen in the Emergency Room complaining of weakness past 2 weeks. Also noted failure to thrive. The patient was seen by Dr. Cotto who initiated Risperdal 1 mg twice a day. She is on metformin, insulin, iron. She is still delusional and minimizing the events that led to her admission. Continues to have poor insight. Continues to be unable to make safe plan for self-care. She has no known drug allergy. I will be initiating Remeron on her because of her not eating well. She is on wheelchair. She believes that she is getting discharged today and I explained to her that she is still not ready to go and no side effects with the medication, no sedation, no nausea, no extrapyramidal symptoms. We will continue outpatient, group therapy, milieu therapy and adjust medication as needed. JOB# [id number]
[2017-12-04] MEDS: INSULIN ASPART SLIDING SCALE 100 UNITS/ML UNIT SUBQ SCH ×4 (06:55→21:25)
[2017-12-04] MEDS: Multivitamin Tab PO SCH (08:23)
[2017-12-04] MEDS: Lactobacillus Rhamnosus GG 15 Billion CFU CAP.SPRINK PO SCH (08:23)
[2017-12-04] MEDS: Ferrous Sulfate 325 MG TAB PO SCH (08:23)
--- NOTE | 2017-12-04 15:55 | Internal Medicine Prog Note ---
Internal Medicine Subjective - Subjective Service Date: 12/04/17 Patient is:: awake, verbal, agitated, confused Per staff patient has:: tolerating meds Internal Medicine Objective - Results Result Diagrams: 12/01/17 11:42 12/01/17 11:42 Recent Labs: Laboratory Last Values WBC 10.1 Th/cmm (4.8-10.8) D 12/01/17 11:42 RBC 4.84 Mil/cmm (3.80-5.10) 12/01/17 11:42 Hgb 13.7 gm/dL (12-16) 12/01/17 11:42 Hct 40.4 % (41.0-60) L 12/01/17 11:42 MCV 83.4 fl (81-100) 12/01/17 11:42 MCH 28.3 pg (27.0-31.0) 12/01/17 11:42 MCHC Differential 33.9 pg (28.0-36.0) 12/01/17 11:42 RDW 12.8 % (11.5-20.0) 12/01/17 11:42 Plt Count 298 Th/cmm (150-400) 12/01/17 11:42 MPV 9.0 fl 12/01/17 11:42 Neutrophils % 75.0 % (40.0-80.0) 12/01/17 11:42 Lymphocytes % 15.6 % (20.0-50.0) L 12/01/17 11:42 Monocytes % 7.7 % (2.0-10.0) 12/01/17 11:42 Eosinophils % 1.0 % (0.0-5.0) 12/01/17 11:42 Basophils % 0.7 % (0.0-2.0) 12/01/17 11:42 Sodium 129 mEq/L (136-145) L 12/01/17 11:42 Potassium 3.8 mEq/L (3.5-5.1) 12/01/17 11:42 Chloride 99 mEq/L (98-107) 12/01/17 11:42 Carbon Dioxide 25.5 mEq/L (21.0-31.0) 12/01/17 11:42 Anion Gap 8.3 (7.0-16.0) 12/01/17 11:42 BUN 19 mg/dL (7-25) 12/01/17 11:42 Creatinine 0.5 mg/dL (0.6-1.2) L 12/01/17 11:42 Est GFR ( Amer) > 60.0 ml/min (>90) 12/01/17 11:42 Est GFR (Non-Af Amer) > 60.0 ml/min 12/01/17 11:42 BUN/Creatinine Ratio 38.0 12/01/17 11:42 Glucose 311 mg/dL (70-105) H 12/01/17 11:42 POC Glucose 200 MG/DL (70 - 105) H 12/03/17 16:48 Hemoglobin A1c % 11.7 % (4.0-6.0) H 11/29/17 17:35 Calcium 9.6 mg/dL (8.6-10.3) 12/01/17 11:42 Magnesium 1.5 mg/dL (1.9-2.7) L 11/29/17 17:35 Total Bilirubin 0.3 mg/dL (0.3-1.0) 11/29/17 17:35 AST 7 U/L (13-39) L 11/29/17 17:35 ALT 7 U/L (7-52) 11/29/17 17:35 Alkaline Phosphatase 78 U/L (34-104) 11/29/17 17:35 Troponin I 0.01 ng/mL (0.01-0.05) 11/29/17 17:35 C-Reactive Protein 0.3 mg/dL (0.0-0.9) 11/29/17 17:35 B-Natriuretic Peptide 58.2 pg/mL (5.0-100.0) 11/29/17 17:35 Total Protein 6.3 gm/dL (6.0-8.3) 11/29/17 17:35 Albumin 3.3 gm/dL (3.7-5.3) L 11/29/17 17:35 Globulin 3.0 gm/dL 11/29/17 17:35 Albumin/Globulin Ratio 1.1 (1.0-1.8) 11/29/17 17:35 Triglycerides 135 mg/dL (<150) 11/29/17 17:35 Cholesterol 141 mg/dL (<200) 11/29/17 17:35 LDL Cholesterol Direct 72 mg/dL (75-193) L 11/29/17 17:35 HDL Cholesterol 60 mg/dL (23-92) 11/29/17 17:35 TSH 3.62 uIU/ml (0.34-5.60) 11/29/17 17:35 Urine Source CLEAN C 11/29/17 21:30 Urine Color YELLOW 11/29/17 21:30 Urine Clarity CLEAR (CLEAR) 11/29/17 21:30 Urine pH 5.5 (4.6 - 8.0) 11/29/17 21:30 Ur Specific [place] >= 1.030 (1.005-1.030) 11/29/17 21:30 Urine Protein NEGATIVE mg/dL (NEGATIVE) 11/29/17 21:30 Urine Glucose (UA) >=1000 mg/dL (NEGATIVE) H 11/29/17 21:30 Urine Ketones TRACE mg/dL (NEGATIVE) 11/29/17 21:30 Urine Blood NEGATIVE (NEGATIVE) 11/29/17 21:30 Urine Nitrate NEGATIVE (NEGATIVE) 11/29/17 21:30 Urine Bilirubin NEGATIVE (NEGATIVE) 11/29/17 21:30 Urine Urobilinogen 0.2 E.U./dL (0.2 - 1.0) 11/29/17 21:30 Ur Leukocyte Esterase NEGATIVE (NEGATIVE) 11/29/17 21:30 Urine RBC 0-2 /hpf (0-5) 11/29/17 21:30 Urine WBC 10-25 /hpf (0-5) H 11/29/17 21:30 Ur Epithelial Cells MODERATE /lpf (FEW) 11/29/17 21:30 Urine Bacteria MODERATE /hpf (NONE SEEN) H 11/29/17 21:30 RPR NONREACTIVE (NONREACTIVE) 11/29/17 17:35 - Physical Exam Vitals and I&O: Vital Signs Temp 99.4 F 12/04/17 14:00 Pulse 91 12/04/17 14:00 Resp 20 12/04/17 14:00 BP 127/60 12/04/17 14:00 Pulse Ox 96 12/04/17 14:00 Intake & Output 12/03/17 12/04/17 12/04/17 18:59 06:59 18:59 Intake Total 1200 Balance 1200 Intake: Oral 1200 Other: # Voids 3 Stool Characteristics Soft Soft Soft Active Medications: Current Medications Acetaminophen (Tylenol) 650 mg PO Q4HR PRN PRN Reason: Mild Pain / Temp above 100 Stop: 01/28/18 23:11 Last Admin: 12/01/17 20:26 Dose: 650 mg Al Hydrox/Mg Hydrox/Simethicone (Maalox) 30 ml PO Q4HR PRN PRN Reason: GI DISTRESS Stop: 01/28/18 23:11 Albuterol Sulfate (Albuterol 2.5mg/3ml Neb Ud) 2.5 mg HHN Q4HRT PRN PRN Reason: Shortness of Breath Stop: 01/28/18 23:13 Aspirin (Aspirin) 325 mg PO DAILY [facility] Stop: 01/29/18 08:59 Last Admin: 12/04/17 08:23 Dose: 325 mg Atorvastatin Calcium (Lipitor) 80 mg PO DAILY [facility] PRN Reason: Protocol Stop: 01/29/18 08:59 Last Admin: 12/04/17 08:23 Dose: 80 mg Benazepril HCl (Lotensin) 20 mg PO DAILY [facility] Stop: 01/29/18 08:59 Last Admin: 12/04/17 08:24 Dose: 20 mg Ferrous Sulfate (Iron) 325 mg PO DAILY [facility] Stop: 01/29/18 08:59 Last Admin: 12/04/17 08:23 Dose: 325 mg Insulin Aspart (Novolog Insulin Sliding Scale) 0 units SUBQ ACHS [facility] PRN Reason: Protocol Stop: 01/29/18 07:29 Last Admin: 12/04/17 11:25 Dose: 2 units Ipratropium [place] (Atrovent Neb 0.5mg/2.5ml) 0.5 mg HHN Q4HRT PRN PRN Reason: Shortness of Breath Stop: 01/28/18 23:13 Lactobacillus Rhamnosus (Culturelle 15b) 1 each PO DAILY [facility] Stop: 02/01/18 08:59 Last Admin: 12/04/17 08:23 Dose: 1 each Levofloxacin (Levaquin) 500 mg PO DAILY [facility] Stop: 12/09/17 08:59 Last Admin: 12/04/17 08:23 Dose: 500 mg Lorazepam (Ativan) 0.5 mg PO Q4HR PRN; Protocol PRN Reason: Anxiety Stop: 12/29/17 23:11 Magnesium Hydroxide (Milk Of Magnesia) 30 ml PO HS PRN PRN Reason: Constipation Metformin HCl (Glucophage) 1,000 mg PO BID [facility] Stop: 01/29/18 08:59 Last Admin: 12/04/17 08:24 Dose: 1,000 mg Mirtazapine (Remeron) 7.5 mg PO HS [facility] PRN Reason: Protocol Stop: 02/01/18 20:59 Last Admin: 12/03/17 21:40 Dose: 7.5 mg Miscellaneous (Probiotic Screen) 1 ea MC PRN PRN PRN Reason: PROTOCOL Stop: 01/31/18 10:14 Multivitamins/Vitamin C (Theragran) 1 tab PO DAILY [facility] Stop: 01/29/18 08:59 Last Admin: 12/04/17 08:23 Dose: 1 tab Risperidone (Risperdal) 1 mg PO TID [facility] PRN Reason: Protocol Stop: 02/02/18 13:59 Last Admin: 12/04/17 13:32 Dose: 1 mg Zolpidem Tartrate (Ambien) 5 mg PO HS PRN PRN Reason: Insomnia Stop: 01/28/18 23:11 General: alert HEENT: NC/AT, PERRLA Neck: Supple Lungs: CTAB Cardiovascular: RRR, Normal S1, Normal S2, without murmur Abdomen: soft, non-tender, non-distended, positive bowel sound Extremities: excoriation Neurological: alert Internal Medicine Assmt/Plan - Assessment Assessment: acute uti psychosis diabetes peripheral neuropathy - Plan Plan: fall precautions monitor glucose level continue current plan of care Nutritional Asmnt/Malnutr-PDOC - Dietary Evaluation Malnutrition Findings (Please click <Entered> for more info): Nutritional Asmnt/Malnutrition Start: 11/30/17 15: 26 Text: Status: Complete Freq: Document 11/30/17 15:26 SHANNAN (Rec: 11/30/17 15:38 SHANNAN [email or web address]) Nutritional Asmnt/Malnutrition Patient General Information Nutritional Screening High Risk Diagnosis psychosis Pertinent Medical Hx/Surgical Hx bipolar, schzophreania, laparotomy for wallowing half a scissor Subjective Information Pt seen sitting in bed just finished her lunch tray at time of visit. Pt reported good appetite, likes roast beef, meatlaof, fruit, but no chicken. Spoke with RN, pt consumed 100% of breakfast this morning. Current Diet Order/ Nutrition Support [facility] low sodium, low cholersterol Pertinent Medications iron, novolog, glucophage, theragran Pertinent Labs 11/29 Na 132, K 3.3, Cl 98, BUN 18, Cr 0.6, Glucose 289, A1c 11.7, Mg 1.5, AST 7, ALT 7, Alb 3.3 11/30 POC 287 Nutritional Hx/Data Height 5 ft 5 in Height (Calculated Centimeters) 165.1 Current Weight (lbs) 150 lb Weight (Calculated Kilograms) 68.0 Weight (Calculated Grams) 10516.9 [place] Body Weight 125 % [place] Body Weight 120 Body Mass Index (BMI) 25.0 Weight Status Overweight GI Symptoms GI Symptoms None Last BM none Difficult in: None Skin Integrity/Comment: intact Estimated Nutritional Goals Calories/Kcals/Kg 25-30 Kcals Calculated [id number] based on IBW 57kg Protein g/k-1.2 Protein Calculated 57-68 Fluid: ml 1425-1710ml (1ml/kcal) Nutritional Problem 1. Problem Problem altered nutritin related lab values Etiology endocrine dysfunction and possible excessive carbohydrates intake Signs/Symptoms: Glucose 289, A1c 11.7, POC 287 Malnutrition Alert Protein-Calorie Malnutrition N/A Is there a minimum of two criteria No selected? Query Text:Check all the applicable criteria. A minimum of two criteria are recommended for diagnosis of either severe or non-severe malnutrition. Intervention/Recommendation Comments 1. Continue with [facility] diet as ordered. Encourage to limit carbohyrates intake and avoid sugar added food. Pt verbalized understanding and will follow the diet. 2. Monitor PO intake, wt, labs and skin integrity 3. F/U as low risk in 7 days, 12/07 Expected Outcomes/Goals Expected Outcomes/Goals 1. PO intake to meet at least 75% of nutritional needs. 2. Wt stability, skin to remain intact, labs to approach WNL.
--- NOTE | 2017-12-04 20:24 | Progress Notes ---
DATE: 12/04/2017 Case was discussed with staff of the patient, reviewed records. The patient continues to be fixated on discharge. Continues to be unpredictable, impulsive. She continues to have episodes of confusion, continues to have poor insight, demanding. She is sleeping well, eating well. She continues to be minimizing events led to her admission expecting to be discharged soon, have no insight about the reason that led to her admission and Dr. Cotto have her on Risperdal twice a day. I will be increasing the dose to 3 times a day. So far no side effects, no sedation, no nausea, no extrapyramidal symptoms. She is still unpredictable, impulsive, needing redirection. We will continue to work with the patient in group therapy, milieu therapy, and adjust medication as needed. JOB# [id number]
[2017-12-05] MEDS: INSULIN ASPART SLIDING SCALE 100 UNITS/ML UNIT SUBQ SCH ×4 (06:59→21:18)
[2017-12-05] MEDS: Ferrous Sulfate 325 MG TAB PO SCH (09:10)
[2017-12-05] MEDS: Multivitamin Tab PO SCH (09:10)
[2017-12-05] MEDS: Lactobacillus Rhamnosus GG 15 Billion CFU CAP.SPRINK PO SCH (09:10)
--- NOTE | 2017-12-05 13:38 | Internal Medicine Prog Note ---
Internal Medicine Subjective - Subjective Service Date: 12/05/17 Patient is:: awake, verbal, agitated, confused Per staff patient has:: tolerating meds Internal Medicine Objective - Results Result Diagrams: 12/01/17 11:42 12/01/17 11:42 Recent Labs: Laboratory Last Values WBC 10.1 Th/cmm (4.8-10.8) D 12/01/17 11:42 RBC 4.84 Mil/cmm (3.80-5.10) 12/01/17 11:42 Hgb 13.7 gm/dL (12-16) 12/01/17 11:42 Hct 40.4 % (41.0-60) L 12/01/17 11:42 MCV 83.4 fl (81-100) 12/01/17 11:42 MCH 28.3 pg (27.0-31.0) 12/01/17 11:42 MCHC Differential 33.9 pg (28.0-36.0) 12/01/17 11:42 RDW 12.8 % (11.5-20.0) 12/01/17 11:42 Plt Count 298 Th/cmm (150-400) 12/01/17 11:42 MPV 9.0 fl 12/01/17 11:42 Neutrophils % 75.0 % (40.0-80.0) 12/01/17 11:42 Lymphocytes % 15.6 % (20.0-50.0) L 12/01/17 11:42 Monocytes % 7.7 % (2.0-10.0) 12/01/17 11:42 Eosinophils % 1.0 % (0.0-5.0) 12/01/17 11:42 Basophils % 0.7 % (0.0-2.0) 12/01/17 11:42 Sodium 129 mEq/L (136-145) L 12/01/17 11:42 Potassium 3.8 mEq/L (3.5-5.1) 12/01/17 11:42 Chloride 99 mEq/L (98-107) 12/01/17 11:42 Carbon Dioxide 25.5 mEq/L (21.0-31.0) 12/01/17 11:42 Anion Gap 8.3 (7.0-16.0) 12/01/17 11:42 BUN 19 mg/dL (7-25) 12/01/17 11:42 Creatinine 0.5 mg/dL (0.6-1.2) L 12/01/17 11:42 Est GFR ( Amer) > 60.0 ml/min (>90) 12/01/17 11:42 Est GFR (Non-Af Amer) > 60.0 ml/min 12/01/17 11:42 BUN/Creatinine Ratio 38.0 12/01/17 11:42 Glucose 311 mg/dL (70-105) H 12/01/17 11:42 POC Glucose 200 MG/DL (70 - 105) H 12/03/17 16:48 Hemoglobin A1c % 11.7 % (4.0-6.0) H 11/29/17 17:35 Calcium 9.6 mg/dL (8.6-10.3) 12/01/17 11:42 Magnesium 1.5 mg/dL (1.9-2.7) L 11/29/17 17:35 Total Bilirubin 0.3 mg/dL (0.3-1.0) 11/29/17 17:35 AST 7 U/L (13-39) L 11/29/17 17:35 ALT 7 U/L (7-52) 11/29/17 17:35 Alkaline Phosphatase 78 U/L (34-104) 11/29/17 17:35 Troponin I 0.01 ng/mL (0.01-0.05) 11/29/17 17:35 C-Reactive Protein 0.3 mg/dL (0.0-0.9) 11/29/17 17:35 B-Natriuretic Peptide 58.2 pg/mL (5.0-100.0) 11/29/17 17:35 Total Protein 6.3 gm/dL (6.0-8.3) 11/29/17 17:35 Albumin 3.3 gm/dL (3.7-5.3) L 11/29/17 17:35 Globulin 3.0 gm/dL 11/29/17 17:35 Albumin/Globulin Ratio 1.1 (1.0-1.8) 11/29/17 17:35 Triglycerides 135 mg/dL (<150) 11/29/17 17:35 Cholesterol 141 mg/dL (<200) 11/29/17 17:35 LDL Cholesterol Direct 72 mg/dL (75-193) L 11/29/17 17:35 HDL Cholesterol 60 mg/dL (23-92) 11/29/17 17:35 TSH 3.62 uIU/ml (0.34-5.60) 11/29/17 17:35 Urine Source CLEAN C 11/29/17 21:30 Urine Color YELLOW 11/29/17 21:30 Urine Clarity CLEAR (CLEAR) 11/29/17 21:30 Urine pH 5.5 (4.6 - 8.0) 11/29/17 21:30 Ur Specific [place] >= 1.030 (1.005-1.030) 11/29/17 21:30 Urine Protein NEGATIVE mg/dL (NEGATIVE) 11/29/17 21:30 Urine Glucose (UA) >=1000 mg/dL (NEGATIVE) H 11/29/17 21:30 Urine Ketones TRACE mg/dL (NEGATIVE) 11/29/17 21:30 Urine Blood NEGATIVE (NEGATIVE) 11/29/17 21:30 Urine Nitrate NEGATIVE (NEGATIVE) 11/29/17 21:30 Urine Bilirubin NEGATIVE (NEGATIVE) 11/29/17 21:30 Urine Urobilinogen 0.2 E.U./dL (0.2 - 1.0) 11/29/17 21:30 Ur Leukocyte Esterase NEGATIVE (NEGATIVE) 11/29/17 21:30 Urine RBC 0-2 /hpf (0-5) 11/29/17 21:30 Urine WBC 10-25 /hpf (0-5) H 11/29/17 21:30 Ur Epithelial Cells MODERATE /lpf (FEW) 11/29/17 21:30 Urine Bacteria MODERATE /hpf (NONE SEEN) H 11/29/17 21:30 RPR NONREACTIVE (NONREACTIVE) 11/29/17 17:35 - Physical Exam Vitals and I&O: Vital Signs Temp 98.3 F 12/05/17 06:45 Pulse 86 12/05/17 09:09 Resp 14 12/05/17 07:00 BP 149/74 12/05/17 09:09 Pulse Ox 95 12/05/17 07:00 Intake & Output 12/04/17 12/05/17 12/05/17 18:59 06:59 18:59 Intake Total 1100 480 Balance 1100 480 Intake: Oral 1100 480 Other: # Voids 3 1 # Bowel Movements 1 Stool Characteristics Soft Active Medications: Current Medications Acetaminophen (Tylenol) 650 mg PO Q4HR PRN PRN Reason: Mild Pain / Temp above 100 Stop: 01/28/18 23:11 Last Admin: 12/01/17 20:26 Dose: 650 mg Al Hydrox/Mg Hydrox/Simethicone (Maalox) 30 ml PO Q4HR PRN PRN Reason: GI DISTRESS Stop: 01/28/18 23:11 Albuterol Sulfate (Albuterol 2.5mg/3ml Neb Ud) 2.5 mg HHN Q4HRT PRN PRN Reason: Shortness of Breath Stop: 01/28/18 23:13 Aspirin (Aspirin) 325 mg PO DAILY [facility] Stop: 01/29/18 08:59 Last Admin: 12/05/17 09:10 Dose: 325 mg Atorvastatin Calcium (Lipitor) 80 mg PO DAILY [facility] PRN Reason: Protocol Stop: 01/29/18 08:59 Last Admin: 12/05/17 09:09 Dose: 80 mg Benazepril HCl (Lotensin) 20 mg PO DAILY [facility] Stop: 01/29/18 08:59 Last Admin: 12/05/17 09:09 Dose: 20 mg Ferrous Sulfate (Iron) 325 mg PO DAILY [facility] Stop: 01/29/18 08:59 Last Admin: 12/05/17 09:10 Dose: 325 mg Insulin Aspart (Novolog Insulin Sliding Scale) 0 units SUBQ ACHS [facility] PRN Reason: Protocol Stop: 01/29/18 07:29 Last Admin: 12/05/17 11:43 Dose: 4 units Ipratropium [place] (Atrovent Neb 0.5mg/2.5ml) 0.5 mg HHN Q4HRT PRN PRN Reason: Shortness of Breath Stop: 01/28/18 23:13 Lactobacillus Rhamnosus (Culturelle 15b) 1 each PO DAILY [facility] Stop: 02/01/18 08:59 Last Admin: 12/05/17 09:10 Dose: 1 each Levofloxacin (Levaquin) 500 mg PO DAILY [facility] Stop: 12/09/17 08:59 Last Admin: 12/05/17 09:10 Dose: 500 mg Lorazepam (Ativan) 0.5 mg PO Q4HR PRN; Protocol PRN Reason: Anxiety Stop: 12/29/17 23:11 Magnesium Hydroxide (Milk Of Magnesia) 30 ml PO HS PRN PRN Reason: Constipation Metformin HCl (Glucophage) 1,000 mg PO BID [facility] Stop: 01/29/18 08:59 Last Admin: 12/05/17 09:10 Dose: 1,000 mg Mirtazapine (Remeron) 7.5 mg PO HS [facility] PRN Reason: Protocol Stop: 02/01/18 20:59 Last Admin: 12/04/17 21:21 Dose: 7.5 mg Miscellaneous (Probiotic Screen) 1 ea MC PRN PRN PRN Reason: PROTOCOL Stop: 01/31/18 10:14 Multivitamins/Vitamin C (Theragran) 1 tab PO DAILY [facility] Stop: 01/29/18 08:59 Last Admin: 12/05/17 09:10 Dose: 1 tab Risperidone (Risperdal) 1 mg PO TID [facility] PRN Reason: Protocol Stop: 02/02/18 13:59 Last Admin: 12/05/17 09:10 Dose: 1 mg Zolpidem Tartrate (Ambien) 5 mg PO HS PRN PRN Reason: Insomnia Stop: 01/28/18 23:11 General: alert HEENT: NC/AT, PERRLA Neck: Supple Lungs: CTAB Cardiovascular: RRR, Normal S1, Normal S2, without murmur Abdomen: soft, non-tender, non-distended, positive bowel sound Extremities: excoriation Neurological: alert Internal Medicine Assmt/Plan - Assessment Assessment: acute uti psychosis diabetes peripheral neuropathy - Plan Plan: fall precautions monitor glucose level continue current plan of care Nutritional Asmnt/Malnutr-PDOC - Dietary Evaluation Malnutrition Findings (Please click <Entered> for more info): Nutritional Asmnt/Malnutrition Start: 11/30/17 15: 26 Text: Status: Complete Freq: Document 11/30/17 15:26 SHANNAN (Rec: 11/30/17 15:38 SHANNAN [email or web address]) Nutritional Asmnt/Malnutrition Patient General Information Nutritional Screening High Risk Diagnosis psychosis Pertinent Medical Hx/Surgical Hx bipolar, schzophreania, laparotomy for wallowing half a scissor Subjective Information Pt seen sitting in bed just finished her lunch tray at time of visit. Pt reported good appetite, likes roast beef, meatlaof, fruit, but no chicken. Spoke with RN, pt consumed 100% of breakfast this morning. Current Diet Order/ Nutrition Support [facility] low sodium, low cholersterol Pertinent Medications iron, novolog, glucophage, theragran Pertinent Labs 11/29 Na 132, K 3.3, Cl 98, BUN 18, Cr 0.6, Glucose 289, A1c 11.7, Mg 1.5, AST 7, ALT 7, Alb 3.3 11/30 POC 287 Nutritional Hx/Data Height 5 ft 5 in Height (Calculated Centimeters) 165.1 Current Weight (lbs) 150 lb Weight (Calculated Kilograms) 68.0 Weight (Calculated Grams) 24851.9 [place] Body Weight 125 % [place] Body Weight 120 Body Mass Index (BMI) 25.0 Weight Status Overweight GI Symptoms GI Symptoms None Last BM none Difficult in: None Skin Integrity/Comment: intact Estimated Nutritional Goals Calories/Kcals/Kg 25-30 Kcals Calculated 1854-0740 based on IBW 57kg Protein g/k-1.2 Protein Calculated 57-68 Fluid: ml 1425-1710ml (1ml/kcal) Nutritional Problem 1. Problem Problem altered nutritin related lab values Etiology endocrine dysfunction and possible excessive carbohydrates intake Signs/Symptoms: Glucose 289, A1c 11.7, POC 287 Malnutrition Alert Protein-Calorie Malnutrition N/A Is there a minimum of two criteria No selected? Query Text:Check all the applicable criteria. A minimum of two criteria are recommended for diagnosis of either severe or non-severe malnutrition. Intervention/Recommendation Comments 1. Continue with [facility] diet as ordered. Encourage to limit carbohyrates intake and avoid sugar added food. Pt verbalized understanding and will follow the diet. 2. Monitor PO intake, wt, labs and skin integrity 3. F/U as low risk in 7 days, 12/07 Expected Outcomes/Goals Expected Outcomes/Goals 1. PO intake to meet at least 75% of nutritional needs. 2. Wt stability, skin to remain intact, labs to approach WNL.
--- NOTE | 2017-12-05 15:41 | Progress Notes ---
DATE: 12/05/2017 Case was discussed with staff of the patient's records. The patient continues to be unpredictable, impulsive, demanding, continues to be loud. Continues to have poor insight. She almost refused her medication this morning, later, she took it. Continues to be psychotic, labile. No side effects with the medication, no sedation, no nausea, no extrapyramidal symptoms. I did increase her Risperdal yesterday to 1 mg 3 times a day. We will continue to work with the patient in group therapy, milieu therapy, adjust medication as needed. JOB# [id number]
[2017-12-06] MEDS: INSULIN ASPART SLIDING SCALE 100 UNITS/ML UNIT SUBQ SCH ×4 (06:53→20:18)
[2017-12-06] MEDS: Multivitamin Tab PO SCH (08:47)
[2017-12-06] MEDS: Lactobacillus Rhamnosus GG 15 Billion CFU CAP.SPRINK PO SCH (08:48)
[2017-12-06] MEDS: Ferrous Sulfate 325 MG TAB PO SCH (08:48)
--- NOTE | 2017-12-06 13:40 | Internal Medicine Prog Note ---
Internal Medicine Subjective - Subjective Patient seen and examined:: with staff, chart reviewed Patient is:: awake, verbal, agitated, confused Per staff patient has:: no adverse event, no episodes of fall, poor appetite, tolerating meds Internal Medicine Objective - Results Result Diagrams: 12/01/17 11:42 12/01/17 11:42 Recent Labs: Laboratory Last Values WBC 10.1 Th/cmm (4.8-10.8) D 12/01/17 11:42 RBC 4.84 Mil/cmm (3.80-5.10) 12/01/17 11:42 Hgb 13.7 gm/dL (12-16) 12/01/17 11:42 Hct 40.4 % (41.0-60) L 12/01/17 11:42 MCV 83.4 fl (81-100) 12/01/17 11:42 MCH 28.3 pg (27.0-31.0) 12/01/17 11:42 MCHC Differential 33.9 pg (28.0-36.0) 12/01/17 11:42 RDW 12.8 % (11.5-20.0) 12/01/17 11:42 Plt Count 298 Th/cmm (150-400) 12/01/17 11:42 MPV 9.0 fl 12/01/17 11:42 Neutrophils % 75.0 % (40.0-80.0) 12/01/17 11:42 Lymphocytes % 15.6 % (20.0-50.0) L 12/01/17 11:42 Monocytes % 7.7 % (2.0-10.0) 12/01/17 11:42 Eosinophils % 1.0 % (0.0-5.0) 12/01/17 11:42 Basophils % 0.7 % (0.0-2.0) 12/01/17 11:42 Sodium 129 mEq/L (136-145) L 12/01/17 11:42 Potassium 3.8 mEq/L (3.5-5.1) 12/01/17 11:42 Chloride 99 mEq/L (98-107) 12/01/17 11:42 Carbon Dioxide 25.5 mEq/L (21.0-31.0) 12/01/17 11:42 Anion Gap 8.3 (7.0-16.0) 12/01/17 11:42 BUN 19 mg/dL (7-25) 12/01/17 11:42 Creatinine 0.5 mg/dL (0.6-1.2) L 12/01/17 11:42 Est GFR ( Amer) > 60.0 ml/min (>90) 12/01/17 11:42 Est GFR (Non-Af Amer) > 60.0 ml/min 12/01/17 11:42 BUN/Creatinine Ratio 38.0 12/01/17 11:42 Glucose 311 mg/dL (70-105) H 12/01/17 11:42 POC Glucose 200 MG/DL (70 - 105) H 12/03/17 16:48 Hemoglobin A1c % 11.7 % (4.0-6.0) H 11/29/17 17:35 Calcium 9.6 mg/dL (8.6-10.3) 12/01/17 11:42 Magnesium 1.5 mg/dL (1.9-2.7) L 11/29/17 17:35 Total Bilirubin 0.3 mg/dL (0.3-1.0) 11/29/17 17:35 AST 7 U/L (13-39) L 11/29/17 17:35 ALT 7 U/L (7-52) 11/29/17 17:35 Alkaline Phosphatase 78 U/L (34-104) 11/29/17 17:35 Troponin I 0.01 ng/mL (0.01-0.05) 11/29/17 17:35 C-Reactive Protein 0.3 mg/dL (0.0-0.9) 11/29/17 17:35 B-Natriuretic Peptide 58.2 pg/mL (5.0-100.0) 11/29/17 17:35 Total Protein 6.3 gm/dL (6.0-8.3) 11/29/17 17:35 Albumin 3.3 gm/dL (3.7-5.3) L 11/29/17 17:35 Globulin 3.0 gm/dL 11/29/17 17:35 Albumin/Globulin Ratio 1.1 (1.0-1.8) 11/29/17 17:35 Triglycerides 135 mg/dL (<150) 11/29/17 17:35 Cholesterol 141 mg/dL (<200) 11/29/17 17:35 LDL Cholesterol Direct 72 mg/dL (75-193) L 11/29/17 17:35 HDL Cholesterol 60 mg/dL (23-92) 11/29/17 17:35 TSH 3.62 uIU/ml (0.34-5.60) 11/29/17 17:35 Urine Source CLEAN C 11/29/17 21:30 Urine Color YELLOW 11/29/17 21:30 Urine Clarity CLEAR (CLEAR) 11/29/17 21:30 Urine pH 5.5 (4.6 - 8.0) 11/29/17 21:30 Ur Specific [place] >= 1.030 (1.005-1.030) 11/29/17 21:30 Urine Protein NEGATIVE mg/dL (NEGATIVE) 11/29/17 21:30 Urine Glucose (UA) >=1000 mg/dL (NEGATIVE) H 11/29/17 21:30 Urine Ketones TRACE mg/dL (NEGATIVE) 11/29/17 21:30 Urine Blood NEGATIVE (NEGATIVE) 11/29/17 21:30 Urine Nitrate NEGATIVE (NEGATIVE) 11/29/17 21:30 Urine Bilirubin NEGATIVE (NEGATIVE) 11/29/17 21:30 Urine Urobilinogen 0.2 E.U./dL (0.2 - 1.0) 11/29/17 21:30 Ur Leukocyte Esterase NEGATIVE (NEGATIVE) 11/29/17 21:30 Urine RBC 0-2 /hpf (0-5) 11/29/17 21:30 Urine WBC 10-25 /hpf (0-5) H 11/29/17 21:30 Ur Epithelial Cells MODERATE /lpf (FEW) 11/29/17 21:30 Urine Bacteria MODERATE /hpf (NONE SEEN) H 11/29/17 21:30 RPR NONREACTIVE (NONREACTIVE) 11/29/17 17:35 - Physical Exam Vitals and I&O: Vital Signs Temp 98.6 F 12/06/17 06:15 Pulse 83 12/06/17 08:47 Resp 14 12/06/17 07:30 BP 140/78 12/06/17 08:47 Pulse Ox 92 12/06/17 07:30 Intake & Output 12/05/17 12/06/17 12/06/17 18:59 06:59 18:59 Intake Total 1200 360 Balance 1200 360 Intake: Oral 1200 360 Other: # Voids 1 # Bowel Movements 0 Active Medications: Current Medications Acetaminophen (Tylenol) 650 mg PO Q4HR PRN PRN Reason: Mild Pain / Temp above 100 Stop: 01/28/18 23:11 Last Admin: 12/01/17 20:26 Dose: 650 mg Al Hydrox/Mg Hydrox/Simethicone (Maalox) 30 ml PO Q4HR PRN PRN Reason: GI DISTRESS Stop: 01/28/18 23:11 Albuterol Sulfate (Albuterol 2.5mg/3ml Neb Ud) 2.5 mg HHN Q4HRT PRN PRN Reason: Shortness of Breath Stop: 01/28/18 23:13 Aspirin (Aspirin) 325 mg PO DAILY [facility] Stop: 01/29/18 08:59 Last Admin: 12/06/17 08:48 Dose: 325 mg Atorvastatin Calcium (Lipitor) 80 mg PO DAILY [facility] PRN Reason: Protocol Stop: 01/29/18 08:59 Last Admin: 12/06/17 08:47 Dose: 80 mg Benazepril HCl (Lotensin) 20 mg PO DAILY [facility] Stop: 01/29/18 08:59 Last Admin: 12/06/17 08:47 Dose: 20 mg Ferrous Sulfate (Iron) 325 mg PO DAILY [facility] Stop: 01/29/18 08:59 Last Admin: 12/06/17 08:48 Dose: 325 mg Insulin Aspart (Novolog Insulin Sliding Scale) 0 units SUBQ ACHS [facility] PRN Reason: Protocol Stop: 01/29/18 07:29 Last Admin: 12/06/17 06:53 Dose: 4 units Ipratropium [place] (Atrovent Neb 0.5mg/2.5ml) 0.5 mg HHN Q4HRT PRN PRN Reason: Shortness of Breath Stop: 01/28/18 23:13 Lactobacillus Rhamnosus (Culturelle 15b) 1 each PO DAILY [facility] Stop: 02/01/18 08:59 Last Admin: 12/06/17 08:48 Dose: 1 each Levofloxacin (Levaquin) 500 mg PO DAILY [facility] Stop: 12/09/17 08:59 Last Admin: 12/06/17 08:48 Dose: 500 mg Lorazepam (Ativan) 0.5 mg PO Q4HR PRN; Protocol PRN Reason: Anxiety Stop: 12/29/17 23:11 Magnesium Hydroxide (Milk Of Magnesia) 30 ml PO HS PRN PRN Reason: Constipation Metformin HCl (Glucophage) 1,000 mg PO BID [facility] Stop: 01/29/18 08:59 Last Admin: 12/06/17 08:48 Dose: 1,000 mg Mirtazapine (Remeron) 7.5 mg PO HS [facility] PRN Reason: Protocol Stop: 02/01/18 20:59 Last Admin: 12/05/17 21:01 Dose: 7.5 mg Miscellaneous (Probiotic Screen) 1 ea MC PRN PRN PRN Reason: PROTOCOL Stop: 01/31/18 10:14 Multivitamins/Vitamin C (Theragran) 1 tab PO DAILY [facility] Stop: 01/29/18 08:59 Last Admin: 12/06/17 08:47 Dose: 1 tab Risperidone (Risperdal) 1 mg PO TID [facility] PRN Reason: Protocol Stop: 02/02/18 13:59 Last Admin: 12/06/17 08:48 Dose: 1 mg Zolpidem Tartrate (Ambien) 5 mg PO HS PRN PRN Reason: Insomnia Stop: 01/28/18 23:11 General: demented HEENT: NC/AT, PERRLA Neck: Supple Lungs: CTAB Cardiovascular: RRR, Normal S1, Normal S2, without murmur Abdomen: soft, non-tender, non-distended, positive bowel sound Extremities: excoriation Neurological: alert Internal Medicine Assmt/Plan - Assessment Assessment: - Assessment Assessment: acute uti psychosis diabetes peripheral neuropathy - Plan Plan: fall precautions monitor glucose level continue current plan of care - Plan Plan: see orders Nutritional Asmnt/Malnutr-PDOC - Dietary Evaluation Malnutrition Findings (Please click <Entered> for more info): Nutritional Asmnt/Malnutrition Start: 11/30/17 15: 26 Text: Status: Complete Freq: Document 11/30/17 15:26 MIGUELG (Rec: 11/30/17 15:38 LCRAZAG [email or web address]) Nutritional Asmnt/Malnutrition Patient General Information Nutritional Screening High Risk Diagnosis psychosis Pertinent Medical Hx/Surgical Hx bipolar, schzophreania, laparotomy for wallowing half a scissor Subjective Information Pt seen sitting in bed just finished her lunch tray at time of visit. Pt reported good appetite, likes roast beef, meatlaof, fruit, but no chicken. Spoke with RN, pt consumed 100% of breakfast this morning. Current Diet Order/ Nutrition Support [facility] low sodium, low cholersterol Pertinent Medications iron, novolog, glucophage, theragran Pertinent Labs 11/29 Na 132, K 3.3, Cl 98, BUN 18, Cr 0.6, Glucose 289, A1c 11.7, Mg 1.5, AST 7, ALT 7, Alb 3.3 11/30 POC 287 Nutritional Hx/Data Height 1.65 m Height (Calculated Centimeters) 165.1 Current Weight (lbs) 68.039 kg Weight (Calculated Kilograms) 68.0 Weight (Calculated Grams) 43805.9 [place] Body Weight 125 % [place] Body Weight 120 Body Mass Index (BMI) 25.0 Weight Status Overweight GI Symptoms GI Symptoms None Last BM none Difficult in: None Skin Integrity/Comment: intact Estimated Nutritional Goals Calories/Kcals/Kg 25-30 Kcals Calculated 8811-6174 based on IBW 57kg Protein g/k-1.2 Protein Calculated 57-68 Fluid: ml 1425-1710ml (1ml/kcal) Nutritional Problem 1. Problem Problem altered nutritin related lab values Etiology endocrine dysfunction and possible excessive carbohydrates intake Signs/Symptoms: Glucose 289, A1c 11.7, POC 287 Malnutrition Alert Protein-Calorie Malnutrition N/A Is there a minimum of two criteria No selected? Query Text:Check all the applicable criteria. A minimum of two criteria are recommended for diagnosis of either severe or non-severe malnutrition. Intervention/Recommendation Comments 1. Continue with [facility] diet as ordered. Encourage to limit carbohyrates intake and avoid sugar added food. Pt verbalized understanding and will follow the diet. 2. Monitor PO intake, wt, labs and skin integrity 3. F/U as low risk in 7 days, 12/07 Expected Outcomes/Goals Expected Outcomes/Goals 1. PO intake to meet at least 75% of nutritional needs. 2. Wt stability, skin to remain intact, labs to approach WNL.
--- NOTE | 2017-12-07 03:41 | Progress Notes ---
DATE: 12/06/2017 SUBJECTIVE: The patient is currently in the hospital, symptomatic, psychotic, Dr. Vanegas noting she remains impulsive, unpredictable, demanding, continues to be loud with poor insight, at times refusing medications, still noted to be psychotic. Dr. Vanegas also due to make medication adjustments. The patient seems to be improving, calmer, more cooperative, more redirectable, asking to leave. She is more oriented today, eating well. MEDICATIONS: Reviewed including dosages and frequencies. ASSESSMENT: The patient is still symptomatic, evidence of psychosis, but improvement noted. PLAN: We will continue to monitor. Continue increased dose of Risperdal. JOB# [id number]
[2017-12-07] MEDS: INSULIN ASPART SLIDING SCALE 100 UNITS/ML UNIT SUBQ SCH ×3 (06:30→20:52)
[2017-12-07] MEDS: Lactobacillus Rhamnosus GG 15 Billion CFU CAP.SPRINK PO SCH (08:17)
[2017-12-07] MEDS: Ferrous Sulfate 325 MG TAB PO SCH (08:18)
[2017-12-07] MEDS: Multivitamin Tab PO SCH (08:18)
--- NOTE | 2017-12-07 13:07 | Internal Medicine Prog Note ---
Internal Medicine Subjective - Subjective Patient seen and examined:: with staff, chart reviewed Patient is:: awake, verbal, agitated, confused Per staff patient has:: no adverse event, no episodes of fall, poor appetite, tolerating meds Internal Medicine Objective - Results Result Diagrams: 12/01/17 11:42 12/01/17 11:42 Recent Labs: Laboratory Last Values WBC 10.1 Th/cmm (4.8-10.8) D 12/01/17 11:42 RBC 4.84 Mil/cmm (3.80-5.10) 12/01/17 11:42 Hgb 13.7 gm/dL (12-16) 12/01/17 11:42 Hct 40.4 % (41.0-60) L 12/01/17 11:42 MCV 83.4 fl (81-100) 12/01/17 11:42 MCH 28.3 pg (27.0-31.0) 12/01/17 11:42 MCHC Differential 33.9 pg (28.0-36.0) 12/01/17 11:42 RDW 12.8 % (11.5-20.0) 12/01/17 11:42 Plt Count 298 Th/cmm (150-400) 12/01/17 11:42 MPV 9.0 fl 12/01/17 11:42 Neutrophils % 75.0 % (40.0-80.0) 12/01/17 11:42 Lymphocytes % 15.6 % (20.0-50.0) L 12/01/17 11:42 Monocytes % 7.7 % (2.0-10.0) 12/01/17 11:42 Eosinophils % 1.0 % (0.0-5.0) 12/01/17 11:42 Basophils % 0.7 % (0.0-2.0) 12/01/17 11:42 Sodium 129 mEq/L (136-145) L 12/01/17 11:42 Potassium 3.8 mEq/L (3.5-5.1) 12/01/17 11:42 Chloride 99 mEq/L (98-107) 12/01/17 11:42 Carbon Dioxide 25.5 mEq/L (21.0-31.0) 12/01/17 11:42 Anion Gap 8.3 (7.0-16.0) 12/01/17 11:42 BUN 19 mg/dL (7-25) 12/01/17 11:42 Creatinine 0.5 mg/dL (0.6-1.2) L 12/01/17 11:42 Est GFR ( Amer) > 60.0 ml/min (>90) 12/01/17 11:42 Est GFR (Non-Af Amer) > 60.0 ml/min 12/01/17 11:42 BUN/Creatinine Ratio 38.0 12/01/17 11:42 Glucose 311 mg/dL (70-105) H 12/01/17 11:42 POC Glucose 200 MG/DL (70 - 105) H 12/03/17 16:48 Hemoglobin A1c % 11.7 % (4.0-6.0) H 11/29/17 17:35 Calcium 9.6 mg/dL (8.6-10.3) 12/01/17 11:42 Magnesium 1.5 mg/dL (1.9-2.7) L 11/29/17 17:35 Total Bilirubin 0.3 mg/dL (0.3-1.0) 11/29/17 17:35 AST 7 U/L (13-39) L 11/29/17 17:35 ALT 7 U/L (7-52) 11/29/17 17:35 Alkaline Phosphatase 78 U/L (34-104) 11/29/17 17:35 Troponin I 0.01 ng/mL (0.01-0.05) 11/29/17 17:35 C-Reactive Protein 0.3 mg/dL (0.0-0.9) 11/29/17 17:35 B-Natriuretic Peptide 58.2 pg/mL (5.0-100.0) 11/29/17 17:35 Total Protein 6.3 gm/dL (6.0-8.3) 11/29/17 17:35 Albumin 3.3 gm/dL (3.7-5.3) L 11/29/17 17:35 Globulin 3.0 gm/dL 11/29/17 17:35 Albumin/Globulin Ratio 1.1 (1.0-1.8) 11/29/17 17:35 Triglycerides 135 mg/dL (<150) 11/29/17 17:35 Cholesterol 141 mg/dL (<200) 11/29/17 17:35 LDL Cholesterol Direct 72 mg/dL (75-193) L 11/29/17 17:35 HDL Cholesterol 60 mg/dL (23-92) 11/29/17 17:35 TSH 3.62 uIU/ml (0.34-5.60) 11/29/17 17:35 Urine Source CLEAN C 11/29/17 21:30 Urine Color YELLOW 11/29/17 21:30 Urine Clarity CLEAR (CLEAR) 11/29/17 21:30 Urine pH 5.5 (4.6 - 8.0) 11/29/17 21:30 Ur Specific [place] >= 1.030 (1.005-1.030) 11/29/17 21:30 Urine Protein NEGATIVE mg/dL (NEGATIVE) 11/29/17 21:30 Urine Glucose (UA) >=1000 mg/dL (NEGATIVE) H 11/29/17 21:30 Urine Ketones TRACE mg/dL (NEGATIVE) 11/29/17 21:30 Urine Blood NEGATIVE (NEGATIVE) 11/29/17 21:30 Urine Nitrate NEGATIVE (NEGATIVE) 11/29/17 21:30 Urine Bilirubin NEGATIVE (NEGATIVE) 11/29/17 21:30 Urine Urobilinogen 0.2 E.U./dL (0.2 - 1.0) 11/29/17 21:30 Ur Leukocyte Esterase NEGATIVE (NEGATIVE) 11/29/17 21:30 Urine RBC 0-2 /hpf (0-5) 11/29/17 21:30 Urine WBC 10-25 /hpf (0-5) H 11/29/17 21:30 Ur Epithelial Cells MODERATE /lpf (FEW) 11/29/17 21:30 Urine Bacteria MODERATE /hpf (NONE SEEN) H 11/29/17 21:30 RPR NONREACTIVE (NONREACTIVE) 11/29/17 17:35 - Physical Exam Vitals and I&O: Vital Signs Temp 99.4 F 12/07/17 06:25 Pulse 81 12/07/17 08:17 Resp 20 12/07/17 06:25 BP 134/78 12/07/17 08:17 Pulse Ox 93 12/07/17 06:25 Intake & Output 12/06/17 12/07/17 12/07/17 18:59 06:59 18:59 Intake Total 240 Balance 240 Intake: Oral 240 Other: # Voids 2 # Bowel Movements 0 Active Medications: Current Medications Acetaminophen (Tylenol) 650 mg PO Q4HR PRN PRN Reason: Mild Pain / Temp above 100 Stop: 01/28/18 23:11 Last Admin: 12/01/17 20:26 Dose: 650 mg Al Hydrox/Mg Hydrox/Simethicone (Maalox) 30 ml PO Q4HR PRN PRN Reason: GI DISTRESS Stop: 01/28/18 23:11 Albuterol Sulfate (Albuterol 2.5mg/3ml Neb Ud) 2.5 mg HHN Q4HRT PRN PRN Reason: Shortness of Breath Stop: 01/28/18 23:13 Aspirin (Aspirin) 325 mg PO DAILY [facility] Stop: 01/29/18 08:59 Last Admin: 12/07/17 08:18 Dose: 325 mg Atorvastatin Calcium (Lipitor) 80 mg PO DAILY [facility] PRN Reason: Protocol Stop: 01/29/18 08:59 Last Admin: 12/07/17 08:17 Dose: 80 mg Benazepril HCl (Lotensin) 20 mg PO DAILY [facility] Stop: 01/29/18 08:59 Last Admin: 12/07/17 08:17 Dose: 20 mg Ferrous Sulfate (Iron) 325 mg PO DAILY [facility] Stop: 01/29/18 08:59 Last Admin: 12/07/17 08:18 Dose: 325 mg Insulin Aspart (Novolog Insulin Sliding Scale) 0 units SUBQ ACHS [facility] PRN Reason: Protocol Stop: 01/29/18 07:29 Last Admin: 12/07/17 06:30 Dose: 4 units Ipratropium [place] (Atrovent Neb 0.5mg/2.5ml) 0.5 mg HHN Q4HRT PRN PRN Reason: Shortness of Breath Stop: 01/28/18 23:13 Lactobacillus Rhamnosus (Culturelle 15b) 1 each PO DAILY [facility] Stop: 02/01/18 08:59 Last Admin: 12/07/17 08:17 Dose: 1 each Levofloxacin (Levaquin) 500 mg PO DAILY [facility] Stop: 12/09/17 08:59 Last Admin: 12/07/17 08:17 Dose: 500 mg Lorazepam (Ativan) 0.5 mg PO Q4HR PRN; Protocol PRN Reason: Anxiety Stop: 12/29/17 23:11 Magnesium Hydroxide (Milk Of Magnesia) 30 ml PO HS PRN PRN Reason: Constipation Metformin HCl (Glucophage) 1,000 mg PO BID [facility] Stop: 01/29/18 08:59 Last Admin: 12/07/17 08:18 Dose: 1,000 mg Mirtazapine (Remeron) 7.5 mg PO HS [facility] PRN Reason: Protocol Stop: 02/01/18 20:59 Last Admin: 12/06/17 20:18 Dose: Not Given Miscellaneous (Probiotic Screen) 1 ea MC PRN PRN PRN Reason: PROTOCOL Stop: 01/31/18 10:14 Multivitamins/Vitamin C (Theragran) 1 tab PO DAILY [facility] Stop: 01/29/18 08:59 Last Admin: 12/07/17 08:18 Dose: 1 tab Risperidone (Risperdal) 1 mg PO TID [facility] PRN Reason: Protocol Stop: 02/02/18 13:59 Last Admin: 12/07/17 08:18 Dose: 1 mg Zolpidem Tartrate (Ambien) 5 mg PO HS PRN PRN Reason: Insomnia Stop: 01/28/18 23:11 General: demented HEENT: NC/AT, PERRLA Neck: Supple Lungs: CTAB Cardiovascular: RRR, Normal S1, Normal S2, without murmur Abdomen: soft, non-tender, non-distended, positive bowel sound Extremities: excoriation Neurological: alert Internal Medicine Assmt/Plan - Assessment Assessment: - Assessment Assessment: acute uti psychosis diabetes peripheral neuropathy - Plan Plan: fall precautions monitor glucose level continue current plan of care - Plan Plan: see orders Nutritional Asmnt/Malnutr-PDOC - Dietary Evaluation Malnutrition Findings (Please click <Entered> for more info): Nutritional Asmnt/Malnutrition Start: 11/30/17 15: 26 Text: Status: Complete Freq: Document 11/30/17 15:26 SHANNAN (Rec: 11/30/17 15:38 SHANNAN [email or web address]) Nutritional Asmnt/Malnutrition Patient General Information Nutritional Screening High Risk Diagnosis psychosis Pertinent Medical Hx/Surgical Hx bipolar, schzophreania, laparotomy for wallowing half a scissor Subjective Information Pt seen sitting in bed just finished her lunch tray at time of visit. Pt reported good appetite, likes roast beef, meatlaof, fruit, but no chicken. Spoke with RN, pt consumed 100% of breakfast this morning. Current Diet Order/ Nutrition Support [facility] low sodium, low cholersterol Pertinent Medications iron, novolog, glucophage, theragran Pertinent Labs 11/29 Na 132, K 3.3, Cl 98, BUN 18, Cr 0.6, Glucose 289, A1c 11.7, Mg 1.5, AST 7, ALT 7, Alb 3.3 11/30 POC 287 Nutritional Hx/Data Height 1.65 m Height (Calculated Centimeters) 165.1 Current Weight (lbs) 68.039 kg Weight (Calculated Kilograms) 68.0 Weight (Calculated Grams) 24270.9 [place] Body Weight 125 % [place] Body Weight 120 Body Mass Index (BMI) 25.0 Weight Status Overweight GI Symptoms GI Symptoms None Last BM none Difficult in: None Skin Integrity/Comment: intact Estimated Nutritional Goals Calories/Kcals/Kg 25-30 Kcals Calculated 7845-6946 based on IBW 57kg Protein g/k-1.2 Protein Calculated 57-68 Fluid: ml 1425-1710ml (1ml/kcal) Nutritional Problem 1. Problem Problem altered nutritin related lab values Etiology endocrine dysfunction and possible excessive carbohydrates intake Signs/Symptoms: Glucose 289, A1c 11.7, POC 287 Malnutrition Alert Protein-Calorie Malnutrition N/A Is there a minimum of two criteria No selected? Query Text:Check all the applicable criteria. A minimum of two criteria are recommended for diagnosis of either severe or non-severe malnutrition. Intervention/Recommendation Comments 1. Continue with [facility] diet as ordered. Encourage to limit carbohyrates intake and avoid sugar added food. Pt verbalized understanding and will follow the diet. 2. Monitor PO intake, wt, labs and skin integrity 3. F/U as low risk in 7 days, 12/07 Expected Outcomes/Goals Expected Outcomes/Goals 1. PO intake to meet at least 75% of nutritional needs. 2. Wt stability, skin to remain intact, labs to approach WNL.
--- NOTE | 2017-12-07 21:48 | Discharge Summary ---
DATE OF DISCHARGE: 12/07/2017 JUSTIFICATION FOR HOSPITALIZATION: Psychotic decompensation. HISTORY OF PRESENT ILLNESS: A 62-year-old female discharged from [facility] psychotic decompensation, believes she is here for diabetes, somewhat confused, and disoriented. PAST MEDICAL HISTORY: Noted. PAST PSYCHIATRIC HISTORY: Currently on Risperdal, apparent history of schizophrenia. SOCIAL HISTORY: Not , no kids, living at a board and care. MEDICATIONS: Noted. MENTAL STATUS EXAMINATION: Please see full psych eval for details. PROVISIONAL DIAGNOSIS: Schizophrenia. PAST MEDICAL HISTORY: Please see full H and P. HOSPITAL COURSE: After initial assessment, the patient was restarted back on her medications. Medications were titrated and adjusted. Over the course of the hospitalization, she improved, mood improved with affect improved, getting along well with staff and peers. Eating well, sleeping well. Staff noting improvement. The patient is calm, cooperative, friendly, and engaged, socially appropriate. No agitation. No psychotic symptoms noted. CONDITION UPON DISCHARGE: Improved, better attention ADLs, good eye contact. Speech was within normal limits. Mood "fine". Affect broad. Thought processes are linear. No SI. No HI. No intent. No plan. No overt psychotic symptoms. No hallucinations. . Improved insight and judgment. DISCHARGE DIAGNOSES: Schizophrenia and anxiety, unspecified. MEDICAL: Please see full H and P. PROGNOSIS: The patient follows up with outpatient mental health services and continues her treatment plan. Prognosis will improve, otherwise guarded. [facility]# [id number]
--- NOTE | 2017-12-08 02:16 | Progress Notes ---
DATE: 12/07/2017 ADDENDUM SECONDARY DIAGNOSIS: Mood unspecified. FINAL DIAGNOSIS: Mood unspecified. [facility]# [id number]
[2017-12-08] MEDS: INSULIN ASPART SLIDING SCALE 100 UNITS/ML UNIT SUBQ SCH ×4 (06:42→21:10)
[2017-12-08] MEDS: Multivitamin Tab PO SCH (08:43)
[2017-12-08] MEDS: Ferrous Sulfate 325 MG TAB PO SCH (08:43)
[2017-12-08] MEDS: Lactobacillus Rhamnosus GG 15 Billion CFU CAP.SPRINK PO SCH (08:46)
--- NOTE | 2017-12-08 13:45 | Internal Medicine Prog Note ---
Internal Medicine Subjective - Subjective Service Date: 12/08/17 Patient is:: awake, verbal, agitated, confused Per staff patient has:: no adverse event, no episodes of fall, poor appetite, tolerating meds Internal Medicine Objective - Results Result Diagrams: 12/01/17 11:42 12/01/17 11:42 Recent Labs: Laboratory Last Values WBC 10.1 Th/cmm (4.8-10.8) D 12/01/17 11:42 RBC 4.84 Mil/cmm (3.80-5.10) 12/01/17 11:42 Hgb 13.7 gm/dL (12-16) 12/01/17 11:42 Hct 40.4 % (41.0-60) L 12/01/17 11:42 MCV 83.4 fl (81-100) 12/01/17 11:42 MCH 28.3 pg (27.0-31.0) 12/01/17 11:42 MCHC Differential 33.9 pg (28.0-36.0) 12/01/17 11:42 RDW 12.8 % (11.5-20.0) 12/01/17 11:42 Plt Count 298 Th/cmm (150-400) 12/01/17 11:42 MPV 9.0 fl 12/01/17 11:42 Neutrophils % 75.0 % (40.0-80.0) 12/01/17 11:42 Lymphocytes % 15.6 % (20.0-50.0) L 12/01/17 11:42 Monocytes % 7.7 % (2.0-10.0) 12/01/17 11:42 Eosinophils % 1.0 % (0.0-5.0) 12/01/17 11:42 Basophils % 0.7 % (0.0-2.0) 12/01/17 11:42 Sodium 129 mEq/L (136-145) L 12/01/17 11:42 Potassium 3.8 mEq/L (3.5-5.1) 12/01/17 11:42 Chloride 99 mEq/L (98-107) 12/01/17 11:42 Carbon Dioxide 25.5 mEq/L (21.0-31.0) 12/01/17 11:42 Anion Gap 8.3 (7.0-16.0) 12/01/17 11:42 BUN 19 mg/dL (7-25) 12/01/17 11:42 Creatinine 0.5 mg/dL (0.6-1.2) L 12/01/17 11:42 Est GFR ( Amer) > 60.0 ml/min (>90) 12/01/17 11:42 Est GFR (Non-Af Amer) > 60.0 ml/min 12/01/17 11:42 BUN/Creatinine Ratio 38.0 12/01/17 11:42 Glucose 311 mg/dL (70-105) H 12/01/17 11:42 POC Glucose 151 MG/DL (70 - 105) H 12/08/17 11:36 Hemoglobin A1c % 11.7 % (4.0-6.0) H 11/29/17 17:35 Calcium 9.6 mg/dL (8.6-10.3) 12/01/17 11:42 Magnesium 1.5 mg/dL (1.9-2.7) L 11/29/17 17:35 Total Bilirubin 0.3 mg/dL (0.3-1.0) 11/29/17 17:35 AST 7 U/L (13-39) L 11/29/17 17:35 ALT 7 U/L (7-52) 11/29/17 17:35 Alkaline Phosphatase 78 U/L (34-104) 11/29/17 17:35 Troponin I 0.01 ng/mL (0.01-0.05) 11/29/17 17:35 C-Reactive Protein 0.3 mg/dL (0.0-0.9) 11/29/17 17:35 B-Natriuretic Peptide 58.2 pg/mL (5.0-100.0) 11/29/17 17:35 Total Protein 6.3 gm/dL (6.0-8.3) 11/29/17 17:35 Albumin 3.3 gm/dL (3.7-5.3) L 11/29/17 17:35 Globulin 3.0 gm/dL 11/29/17 17:35 Albumin/Globulin Ratio 1.1 (1.0-1.8) 11/29/17 17:35 Triglycerides 135 mg/dL (<150) 11/29/17 17:35 Cholesterol 141 mg/dL (<200) 11/29/17 17:35 LDL Cholesterol Direct 72 mg/dL (75-193) L 11/29/17 17:35 HDL Cholesterol 60 mg/dL (23-92) 11/29/17 17:35 TSH 3.62 uIU/ml (0.34-5.60) 11/29/17 17:35 Urine Source CLEAN C 11/29/17 21:30 Urine Color YELLOW 11/29/17 21:30 Urine Clarity CLEAR (CLEAR) 11/29/17 21:30 Urine pH 5.5 (4.6 - 8.0) 11/29/17 21:30 Ur Specific [place] >= 1.030 (1.005-1.030) 11/29/17 21:30 Urine Protein NEGATIVE mg/dL (NEGATIVE) 11/29/17 21:30 Urine Glucose (UA) >=1000 mg/dL (NEGATIVE) H 11/29/17 21:30 Urine Ketones TRACE mg/dL (NEGATIVE) 11/29/17 21:30 Urine Blood NEGATIVE (NEGATIVE) 11/29/17 21:30 Urine Nitrate NEGATIVE (NEGATIVE) 11/29/17 21:30 Urine Bilirubin NEGATIVE (NEGATIVE) 11/29/17 21:30 Urine Urobilinogen 0.2 E.U./dL (0.2 - 1.0) 11/29/17 21:30 Ur Leukocyte Esterase NEGATIVE (NEGATIVE) 11/29/17 21:30 Urine RBC 0-2 /hpf (0-5) 11/29/17 21:30 Urine WBC 10-25 /hpf (0-5) H 11/29/17 21:30 Ur Epithelial Cells MODERATE /lpf (FEW) 11/29/17 21:30 Urine Bacteria MODERATE /hpf (NONE SEEN) H 11/29/17 21:30 RPR NONREACTIVE (NONREACTIVE) 11/29/17 17:35 - Physical Exam Vitals and I&O: Vital Signs Temp 97.8 F 12/08/17 05:43 Pulse 88 12/08/17 12:14 Resp 20 12/08/17 12:14 BP 116/75 12/08/17 08:46 Pulse Ox 99 12/08/17 05:43 Intake & Output 12/07/17 12/08/17 12/08/17 18:59 06:59 18:59 Intake Total 240 Balance 240 Intake: Oral 240 Other: # Voids 1 # Bowel Movements 0 Active Medications: Current Medications Acetaminophen (Tylenol) 650 mg PO Q4HR PRN PRN Reason: Mild Pain / Temp above 100 Stop: 01/28/18 23:11 Last Admin: 12/08/17 04:22 Dose: 650 mg Al Hydrox/Mg Hydrox/Simethicone (Maalox) 30 ml PO Q4HR PRN PRN Reason: GI DISTRESS Stop: 01/28/18 23:11 Albuterol Sulfate (Albuterol 2.5mg/3ml Neb Ud) 2.5 mg HHN Q4HRT PRN PRN Reason: Shortness of Breath Stop: 01/28/18 23:13 Aspirin (Aspirin) 325 mg PO DAILY [facility] Stop: 01/29/18 08:59 Last Admin: 12/08/17 08:43 Dose: 325 mg Atorvastatin Calcium (Lipitor) 80 mg PO DAILY [facility] PRN Reason: Protocol Stop: 01/29/18 08:59 Last Admin: 12/08/17 08:46 Dose: 80 mg Benazepril HCl (Lotensin) 20 mg PO DAILY [facility] Stop: 01/29/18 08:59 Last Admin: 12/08/17 08:46 Dose: 20 mg Ferrous Sulfate (Iron) 325 mg PO DAILY [facility] Stop: 01/29/18 08:59 Last Admin: 12/08/17 08:43 Dose: 325 mg Insulin Aspart (Novolog Insulin Sliding Scale) 0 units SUBQ ACHS [facility] PRN Reason: Protocol Stop: 01/29/18 07:29 Last Admin: 12/08/17 11:44 Dose: 2 units Ipratropium [place] (Atrovent Neb 0.5mg/2.5ml) 0.5 mg HHN Q4HRT PRN PRN Reason: Shortness of Breath Stop: 01/28/18 23:13 Lactobacillus Rhamnosus (Culturelle 15b) 1 each PO DAILY [facility] Stop: 02/01/18 08:59 Last Admin: 12/08/17 08:46 Dose: 1 each Lorazepam (Ativan) 0.5 mg PO Q4HR PRN; Protocol PRN Reason: Anxiety Stop: 12/29/17 23:11 Last Admin: 12/08/17 04:23 Dose: 0.5 mg Magnesium Hydroxide (Milk Of Magnesia) 30 ml PO HS PRN PRN Reason: Constipation Metformin HCl (Glucophage) 1,000 mg PO BID [facility] Stop: 01/29/18 08:59 Last Admin: 12/08/17 08:43 Dose: 1,000 mg Mirtazapine (Remeron) 7.5 mg PO HS [facility] PRN Reason: Protocol Stop: 02/01/18 20:59 Last Admin: 12/07/17 20:53 Dose: Not Given Miscellaneous (Probiotic Screen) 1 ea MC PRN PRN PRN Reason: PROTOCOL Stop: 01/31/18 10:14 Multivitamins/Vitamin C (Theragran) 1 tab PO DAILY [facility] Stop: 01/29/18 08:59 Last Admin: 12/08/17 08:43 Dose: 1 tab Risperidone (Risperdal) 1 mg PO TID [facility] PRN Reason: Protocol Stop: 02/02/18 13:59 Last Admin: 12/08/17 13:32 Dose: 1 mg Zolpidem Tartrate (Ambien) 5 mg PO HS PRN PRN Reason: Insomnia Stop: 01/28/18 23:11 General: demented HEENT: NC/AT, PERRLA Neck: Supple Lungs: CTAB Cardiovascular: RRR, Normal S1, Normal S2, without murmur Abdomen: soft, non-tender, non-distended, positive bowel sound Extremities: excoriation Neurological: alert Internal Medicine Assmt/Plan - Assessment Assessment: acute uti psychosis diabetes peripheral neuropathy - Plan Plan: fall precautions monitor glucose level continue current plan of care Nutritional Asmnt/Malnutr-PDOC - Dietary Evaluation Malnutrition Findings (Please click <Entered> for more info): Nutritional Asmnt/Malnutrition Start: 11/30/17 15: 26 Text: Status: Complete Freq: Document 11/30/17 15:26 LCHENG (Rec: 11/30/17 15:38 LCHENG [email or web address]) Nutritional Asmnt/Malnutrition Patient General Information Nutritional Screening High Risk Diagnosis psychosis Pertinent Medical Hx/Surgical Hx bipolar, schzophreania, laparotomy for wallowing half a scissor Subjective Information Pt seen sitting in bed just finished her lunch tray at time of visit. Pt reported good appetite, likes roast beef, meatlaof, fruit, but no chicken. Spoke with RN, pt consumed 100% of breakfast this morning. Current Diet Order/ Nutrition Support [facility] low sodium, low cholersterol Pertinent Medications iron, novolog, glucophage, theragran Pertinent Labs 11/29 Na 132, K 3.3, Cl 98, BUN 18, Cr 0.6, Glucose 289, A1c 11.7, Mg 1.5, AST 7, ALT 7, Alb 3.3 11/30 POC 287 Nutritional Hx/Data Height 5 ft 5 in Height (Calculated Centimeters) 165.1 Current Weight (lbs) 150 lb Weight (Calculated Kilograms) 68.0 Weight (Calculated Grams) 04063.9 [place] Body Weight 125 % [place] Body Weight 120 Body Mass Index (BMI) 25.0 Weight Status Overweight GI Symptoms GI Symptoms None Last BM none Difficult in: None Skin Integrity/Comment: intact Estimated Nutritional Goals Calories/Kcals/Kg 25-30 Kcals Calculated 2494-3857 based on IBW 57kg Protein g/k-1.2 Protein Calculated 57-68 Fluid: ml 1425-1710ml (1ml/kcal) Nutritional Problem 1. Problem Problem altered nutritin related lab values Etiology endocrine dysfunction and possible excessive carbohydrates intake Signs/Symptoms: Glucose 289, A1c 11.7, POC 287 Malnutrition Alert Protein-Calorie Malnutrition N/A Is there a minimum of two criteria No selected? Query Text:Check all the applicable criteria. A minimum of two criteria are recommended for diagnosis of either severe or non-severe malnutrition. Intervention/Recommendation Comments 1. Continue with [facility] diet as ordered. Encourage to limit carbohyrates intake and avoid sugar added food. Pt verbalized understanding and will follow the diet. 2. Monitor PO intake, wt, labs and skin integrity 3. F/U as low risk in 7 days, 12/07 Expected Outcomes/Goals Expected Outcomes/Goals 1. PO intake to meet at least 75% of nutritional needs. 2. Wt stability, skin to remain intact, labs to approach WNL.
--- NOTE | 2017-12-09 03:03 | Progress Notes ---
DATE: 12/08/2017 Efforts are being made to discharge the patient and she seems to be improving. No SI, no HI. She is more engaged on exam. No hallucinations noted. Somewhat withdrawn, but at the same time, she is redirectable. The patient currently considered gravely disabled though we have no place to send her and there are concerns about her ability to care for basic needs. We are actively looking for placement at this time and I am in touch with social work. JOB# [id number]
[2017-12-09] MEDS: INSULIN ASPART SLIDING SCALE 100 UNITS/ML UNIT SUBQ SCH ×4 (06:34→21:00)
[2017-12-09] MEDS: Lactobacillus Rhamnosus GG 15 Billion CFU CAP.SPRINK PO SCH (08:35)
[2017-12-09] MEDS: Ferrous Sulfate 325 MG TAB PO SCH (08:35)
[2017-12-09] MEDS: Multivitamin Tab PO SCH (08:35)
--- NOTE | 2017-12-09 15:22 | Internal Medicine Prog Note ---
Internal Medicine Subjective - Subjective Service Date: 12/09/17 Patient is:: awake, verbal, agitated, confused Per staff patient has:: no adverse event, no episodes of fall, poor appetite, tolerating meds Internal Medicine Objective - Results Result Diagrams: 12/01/17 11:42 12/01/17 11:42 Recent Labs: Laboratory Last Values WBC 10.1 Th/cmm (4.8-10.8) D 12/01/17 11:42 RBC 4.84 Mil/cmm (3.80-5.10) 12/01/17 11:42 Hgb 13.7 gm/dL (12-16) 12/01/17 11:42 Hct 40.4 % (41.0-60) L 12/01/17 11:42 MCV 83.4 fl (81-100) 12/01/17 11:42 MCH 28.3 pg (27.0-31.0) 12/01/17 11:42 MCHC Differential 33.9 pg (28.0-36.0) 12/01/17 11:42 RDW 12.8 % (11.5-20.0) 12/01/17 11:42 Plt Count 298 Th/cmm (150-400) 12/01/17 11:42 MPV 9.0 fl 12/01/17 11:42 Neutrophils % 75.0 % (40.0-80.0) 12/01/17 11:42 Lymphocytes % 15.6 % (20.0-50.0) L 12/01/17 11:42 Monocytes % 7.7 % (2.0-10.0) 12/01/17 11:42 Eosinophils % 1.0 % (0.0-5.0) 12/01/17 11:42 Basophils % 0.7 % (0.0-2.0) 12/01/17 11:42 Sodium 129 mEq/L (136-145) L 12/01/17 11:42 Potassium 3.8 mEq/L (3.5-5.1) 12/01/17 11:42 Chloride 99 mEq/L (98-107) 12/01/17 11:42 Carbon Dioxide 25.5 mEq/L (21.0-31.0) 12/01/17 11:42 Anion Gap 8.3 (7.0-16.0) 12/01/17 11:42 BUN 19 mg/dL (7-25) 12/01/17 11:42 Creatinine 0.5 mg/dL (0.6-1.2) L 12/01/17 11:42 Est GFR ( Amer) > 60.0 ml/min (>90) 12/01/17 11:42 Est GFR (Non-Af Amer) > 60.0 ml/min 12/01/17 11:42 BUN/Creatinine Ratio 38.0 12/01/17 11:42 Glucose 311 mg/dL (70-105) H 12/01/17 11:42 POC Glucose 127 MG/DL (70 - 105) H 12/08/17 16:41 Hemoglobin A1c % 11.7 % (4.0-6.0) H 11/29/17 17:35 Calcium 9.6 mg/dL (8.6-10.3) 12/01/17 11:42 Magnesium 1.5 mg/dL (1.9-2.7) L 11/29/17 17:35 Total Bilirubin 0.3 mg/dL (0.3-1.0) 11/29/17 17:35 AST 7 U/L (13-39) L 11/29/17 17:35 ALT 7 U/L (7-52) 11/29/17 17:35 Alkaline Phosphatase 78 U/L (34-104) 11/29/17 17:35 Troponin I 0.01 ng/mL (0.01-0.05) 11/29/17 17:35 C-Reactive Protein 0.3 mg/dL (0.0-0.9) 11/29/17 17:35 B-Natriuretic Peptide 58.2 pg/mL (5.0-100.0) 11/29/17 17:35 Total Protein 6.3 gm/dL (6.0-8.3) 11/29/17 17:35 Albumin 3.3 gm/dL (3.7-5.3) L 11/29/17 17:35 Globulin 3.0 gm/dL 11/29/17 17:35 Albumin/Globulin Ratio 1.1 (1.0-1.8) 11/29/17 17:35 Triglycerides 135 mg/dL (<150) 11/29/17 17:35 Cholesterol 141 mg/dL (<200) 11/29/17 17:35 LDL Cholesterol Direct 72 mg/dL (75-193) L 11/29/17 17:35 HDL Cholesterol 60 mg/dL (23-92) 11/29/17 17:35 TSH 3.62 uIU/ml (0.34-5.60) 11/29/17 17:35 Urine Source CLEAN C 11/29/17 21:30 Urine Color YELLOW 11/29/17 21:30 Urine Clarity CLEAR (CLEAR) 11/29/17 21:30 Urine pH 5.5 (4.6 - 8.0) 11/29/17 21:30 Ur Specific [place] >= 1.030 (1.005-1.030) 11/29/17 21:30 Urine Protein NEGATIVE mg/dL (NEGATIVE) 11/29/17 21:30 Urine Glucose (UA) >=1000 mg/dL (NEGATIVE) H 11/29/17 21:30 Urine Ketones TRACE mg/dL (NEGATIVE) 11/29/17 21:30 Urine Blood NEGATIVE (NEGATIVE) 11/29/17 21:30 Urine Nitrate NEGATIVE (NEGATIVE) 11/29/17 21:30 Urine Bilirubin NEGATIVE (NEGATIVE) 11/29/17 21:30 Urine Urobilinogen 0.2 E.U./dL (0.2 - 1.0) 11/29/17 21:30 Ur Leukocyte Esterase NEGATIVE (NEGATIVE) 11/29/17 21:30 Urine RBC 0-2 /hpf (0-5) 11/29/17 21:30 Urine WBC 10-25 /hpf (0-5) H 11/29/17 21:30 Ur Epithelial Cells MODERATE /lpf (FEW) 11/29/17 21:30 Urine Bacteria MODERATE /hpf (NONE SEEN) H 11/29/17 21:30 RPR NONREACTIVE (NONREACTIVE) 11/29/17 17:35 - Physical Exam Vitals and I&O: Vital Signs Temp 97.6 F 12/09/17 13:58 Pulse 89 12/09/17 13:58 Resp 20 12/09/17 13:58 BP 103/58 12/09/17 13:58 Pulse Ox 100 12/09/17 13:58 Intake & Output 12/08/17 12/09/17 12/09/17 18:59 06:59 18:59 Intake Total 700 Balance 700 Intake: Oral 700 Other: # Voids 3 # Bowel Movements 0 Active Medications: Current Medications Acetaminophen (Tylenol) 650 mg PO Q4HR PRN PRN Reason: Mild Pain / Temp above 100 Stop: 01/28/18 23:11 Last Admin: 12/08/17 04:22 Dose: 650 mg Al Hydrox/Mg Hydrox/Simethicone (Maalox) 30 ml PO Q4HR PRN PRN Reason: GI DISTRESS Stop: 01/28/18 23:11 Albuterol Sulfate (Albuterol 2.5mg/3ml Neb Ud) 2.5 mg HHN Q4HRT PRN PRN Reason: Shortness of Breath Stop: 01/28/18 23:13 Aspirin (Aspirin) 325 mg PO DAILY [facility] Stop: 01/29/18 08:59 Last Admin: 12/09/17 08:35 Dose: 325 mg Atorvastatin Calcium (Lipitor) 80 mg PO DAILY [facility] PRN Reason: Protocol Stop: 01/29/18 08:59 Last Admin: 12/09/17 08:36 Dose: 80 mg Benazepril HCl (Lotensin) 20 mg PO DAILY [facility] Stop: 01/29/18 08:59 Last Admin: 12/09/17 08:41 Dose: Not Given Ferrous Sulfate (Iron) 325 mg PO DAILY [facility] Stop: 01/29/18 08:59 Last Admin: 12/09/17 08:35 Dose: 325 mg Insulin Aspart (Novolog Insulin Sliding Scale) 0 units SUBQ ACHS [facility] PRN Reason: Protocol Stop: 01/29/18 07:29 Last Admin: 12/09/17 11:18 Dose: 2 units Ipratropium [place] (Atrovent Neb 0.5mg/2.5ml) 0.5 mg HHN Q4HRT PRN PRN Reason: Shortness of Breath Stop: 01/28/18 23:13 Lactobacillus Rhamnosus (Culturelle 15b) 1 each PO DAILY [facility] Stop: 12/14/17 11:00 Last Admin: 12/09/17 08:35 Dose: 1 each Lorazepam (Ativan) 0.5 mg PO Q4HR PRN; Protocol PRN Reason: Anxiety Stop: 12/29/17 23:11 Last Admin: 12/08/17 04:23 Dose: 0.5 mg Magnesium Hydroxide (Milk Of Magnesia) 30 ml PO HS PRN PRN Reason: Constipation Metformin HCl (Glucophage) 1,000 mg PO BID [facility] Stop: 01/29/18 08:59 Last Admin: 12/09/17 08:36 Dose: 1,000 mg Mirtazapine (Remeron) 7.5 mg PO HS [facility] PRN Reason: Protocol Stop: 02/01/18 20:59 Last Admin: 12/08/17 21:03 Dose: 7.5 mg Miscellaneous (Probiotic Screen) 1 ea MC PRN PRN PRN Reason: PROTOCOL Stop: 01/31/18 10:14 Multivitamins/Vitamin C (Theragran) 1 tab PO DAILY [facility] Stop: 01/29/18 08:59 Last Admin: 12/09/17 08:35 Dose: 1 tab Risperidone (Risperdal) 1 mg PO TID [facility] PRN Reason: Protocol Stop: 02/02/18 13:59 Last Admin: 12/09/17 13:12 Dose: 1 mg Zolpidem Tartrate (Ambien) 5 mg PO HS PRN PRN Reason: Insomnia Stop: 01/28/18 23:11 General: demented HEENT: NC/AT, PERRLA Neck: Supple Lungs: CTAB Cardiovascular: RRR, Normal S1, Normal S2, without murmur Abdomen: soft, non-tender, non-distended, positive bowel sound Extremities: excoriation Neurological: alert Internal Medicine Assmt/Plan - Assessment Assessment: acute uti psychosis diabetes peripheral neuropathy - Plan Plan: fall precautions monitor glucose level continue current plan of care Nutritional Asmnt/Malnutr-PDOC - Dietary Evaluation Malnutrition Findings (Please click <Entered> for more info): Nutritional Asmnt/Malnutrition Start: 11/30/17 15: 26 Text: Status: Complete Freq: Document 11/30/17 15:26 LCHENG (Rec: 11/30/17 15:38 LCRAZAG [email or web address]) Nutritional Asmnt/Malnutrition Patient General Information Nutritional Screening High Risk Diagnosis psychosis Pertinent Medical Hx/Surgical Hx bipolar, schzophreania, laparotomy for wallowing half a scissor Subjective Information Pt seen sitting in bed just finished her lunch tray at time of visit. Pt reported good appetite, likes roast beef, meatlaof, fruit, but no chicken. Spoke with RN, pt consumed 100% of breakfast this morning. Current Diet Order/ Nutrition Support [facility] low sodium, low cholersterol Pertinent Medications iron, novolog, glucophage, theragran Pertinent Labs 11/29 Na 132, K 3.3, Cl 98, BUN 18, Cr 0.6, Glucose 289, A1c 11.7, Mg 1.5, AST 7, ALT 7, Alb 3.3 11/30 POC 287 Nutritional Hx/Data Height 5 ft 5 in Height (Calculated Centimeters) 165.1 Current Weight (lbs) 150 lb Weight (Calculated Kilograms) 68.0 Weight (Calculated Grams) 93298.9 [place] Body Weight 125 % [place] Body Weight 120 Body Mass Index (BMI) 25.0 Weight Status Overweight GI Symptoms GI Symptoms None Last BM none Difficult in: None Skin Integrity/Comment: intact Estimated Nutritional Goals Calories/Kcals/Kg 25-30 Kcals Calculated 7262-1515 based on IBW 57kg Protein g/k-1.2 Protein Calculated 57-68 Fluid: ml 1425-1710ml (1ml/kcal) Nutritional Problem 1. Problem Problem altered nutritin related lab values Etiology endocrine dysfunction and possible excessive carbohydrates intake Signs/Symptoms: Glucose 289, A1c 11.7, POC 287 Malnutrition Alert Protein-Calorie Malnutrition N/A Is there a minimum of two criteria No selected? Query Text:Check all the applicable criteria. A minimum of two criteria are recommended for diagnosis of either severe or non-severe malnutrition. Intervention/Recommendation Comments 1. Continue with [facility] diet as ordered. Encourage to limit carbohyrates intake and avoid sugar added food. Pt verbalized understanding and will follow the diet. 2. Monitor PO intake, wt, labs and skin integrity 3. F/U as low risk in 7 days, 12/07 Expected Outcomes/Goals Expected Outcomes/Goals 1. PO intake to meet at least 75% of nutritional needs. 2. Wt stability, skin to remain intact, labs to approach WNL.
[2017-12-10] MEDS: INSULIN ASPART SLIDING SCALE 100 UNITS/ML UNIT SUBQ SCH ×2 (06:44→11:49)
[2017-12-10] MEDS: Ferrous Sulfate 325 MG TAB PO SCH (09:30)
[2017-12-10] MEDS: Multivitamin Tab PO SCH (09:30)
[2017-12-10] MEDS: Lactobacillus Rhamnosus GG 15 Billion CFU CAP.SPRINK PO SCH (09:30)
--- NOTE | 2017-12-10 13:24 | Internal Medicine Prog Note ---
Internal Medicine Subjective - Subjective Service Date: 12/10/17 Patient is:: awake, verbal, agitated, confused Per staff patient has:: no adverse event, no episodes of fall, poor appetite, tolerating meds Internal Medicine Objective - Results Result Diagrams: 12/01/17 11:42 12/01/17 11:42 Recent Labs: Laboratory Last Values WBC 10.1 Th/cmm (4.8-10.8) D 12/01/17 11:42 RBC 4.84 Mil/cmm (3.80-5.10) 12/01/17 11:42 Hgb 13.7 gm/dL (12-16) 12/01/17 11:42 Hct 40.4 % (41.0-60) L 12/01/17 11:42 MCV 83.4 fl (81-100) 12/01/17 11:42 MCH 28.3 pg (27.0-31.0) 12/01/17 11:42 MCHC Differential 33.9 pg (28.0-36.0) 12/01/17 11:42 RDW 12.8 % (11.5-20.0) 12/01/17 11:42 Plt Count 298 Th/cmm (150-400) 12/01/17 11:42 MPV 9.0 fl 12/01/17 11:42 Neutrophils % 75.0 % (40.0-80.0) 12/01/17 11:42 Lymphocytes % 15.6 % (20.0-50.0) L 12/01/17 11:42 Monocytes % 7.7 % (2.0-10.0) 12/01/17 11:42 Eosinophils % 1.0 % (0.0-5.0) 12/01/17 11:42 Basophils % 0.7 % (0.0-2.0) 12/01/17 11:42 Sodium 129 mEq/L (136-145) L 12/01/17 11:42 Potassium 3.8 mEq/L (3.5-5.1) 12/01/17 11:42 Chloride 99 mEq/L (98-107) 12/01/17 11:42 Carbon Dioxide 25.5 mEq/L (21.0-31.0) 12/01/17 11:42 Anion Gap 8.3 (7.0-16.0) 12/01/17 11:42 BUN 19 mg/dL (7-25) 12/01/17 11:42 Creatinine 0.5 mg/dL (0.6-1.2) L 12/01/17 11:42 Est GFR ( Amer) > 60.0 ml/min (>90) 12/01/17 11:42 Est GFR (Non-Af Amer) > 60.0 ml/min 12/01/17 11:42 BUN/Creatinine Ratio 38.0 12/01/17 11:42 Glucose 311 mg/dL (70-105) H 12/01/17 11:42 POC Glucose 127 MG/DL (70 - 105) H 12/08/17 16:41 Hemoglobin A1c % 11.7 % (4.0-6.0) H 11/29/17 17:35 Calcium 9.6 mg/dL (8.6-10.3) 12/01/17 11:42 Magnesium 1.5 mg/dL (1.9-2.7) L 11/29/17 17:35 Total Bilirubin 0.3 mg/dL (0.3-1.0) 11/29/17 17:35 AST 7 U/L (13-39) L 11/29/17 17:35 ALT 7 U/L (7-52) 11/29/17 17:35 Alkaline Phosphatase 78 U/L (34-104) 11/29/17 17:35 Troponin I 0.01 ng/mL (0.01-0.05) 11/29/17 17:35 C-Reactive Protein 0.3 mg/dL (0.0-0.9) 11/29/17 17:35 B-Natriuretic Peptide 58.2 pg/mL (5.0-100.0) 11/29/17 17:35 Total Protein 6.3 gm/dL (6.0-8.3) 11/29/17 17:35 Albumin 3.3 gm/dL (3.7-5.3) L 11/29/17 17:35 Globulin 3.0 gm/dL 11/29/17 17:35 Albumin/Globulin Ratio 1.1 (1.0-1.8) 11/29/17 17:35 Triglycerides 135 mg/dL (<150) 11/29/17 17:35 Cholesterol 141 mg/dL (<200) 11/29/17 17:35 LDL Cholesterol Direct 72 mg/dL (75-193) L 11/29/17 17:35 HDL Cholesterol 60 mg/dL (23-92) 11/29/17 17:35 TSH 3.62 uIU/ml (0.34-5.60) 11/29/17 17:35 Urine Source CLEAN C 11/29/17 21:30 Urine Color YELLOW 11/29/17 21:30 Urine Clarity CLEAR (CLEAR) 11/29/17 21:30 Urine pH 5.5 (4.6 - 8.0) 11/29/17 21:30 Ur Specific [place] >= 1.030 (1.005-1.030) 11/29/17 21:30 Urine Protein NEGATIVE mg/dL (NEGATIVE) 11/29/17 21:30 Urine Glucose (UA) >=1000 mg/dL (NEGATIVE) H 11/29/17 21:30 Urine Ketones TRACE mg/dL (NEGATIVE) 11/29/17 21:30 Urine Blood NEGATIVE (NEGATIVE) 11/29/17 21:30 Urine Nitrate NEGATIVE (NEGATIVE) 11/29/17 21:30 Urine Bilirubin NEGATIVE (NEGATIVE) 11/29/17 21:30 Urine Urobilinogen 0.2 E.U./dL (0.2 - 1.0) 11/29/17 21:30 Ur Leukocyte Esterase NEGATIVE (NEGATIVE) 11/29/17 21:30 Urine RBC 0-2 /hpf (0-5) 11/29/17 21:30 Urine WBC 10-25 /hpf (0-5) H 11/29/17 21:30 Ur Epithelial Cells MODERATE /lpf (FEW) 11/29/17 21:30 Urine Bacteria MODERATE /hpf (NONE SEEN) H 11/29/17 21:30 RPR NONREACTIVE (NONREACTIVE) 11/29/17 17:35 - Physical Exam Vitals and I&O: Vital Signs Temp 97.7 F 12/10/17 06:00 Pulse 80 12/10/17 09:31 Resp 18 12/10/17 08:24 BP 140/74 12/10/17 09:31 Pulse Ox 94 12/10/17 08:24 Intake & Output 12/09/17 12/10/17 12/10/17 18:59 06:59 18:59 Intake Total 1000 500 Balance 1000 500 Intake: Oral 1000 500 Other: # Voids 3 2 # Bowel Movements 1 0 Stool Characteristics Soft Soft Formed Formed Active Medications: Current Medications Acetaminophen (Tylenol) 650 mg PO Q4HR PRN PRN Reason: Mild Pain / Temp above 100 Stop: 01/28/18 23:11 Last Admin: 12/08/17 04:22 Dose: 650 mg Al Hydrox/Mg Hydrox/Simethicone (Maalox) 30 ml PO Q4HR PRN PRN Reason: GI DISTRESS Stop: 01/28/18 23:11 Albuterol Sulfate (Albuterol 2.5mg/3ml Neb Ud) 2.5 mg HHN Q4HRT PRN PRN Reason: Shortness of Breath Stop: 01/28/18 23:13 Aspirin (Aspirin) 325 mg PO DAILY [facility] Stop: 01/29/18 08:59 Last Admin: 12/10/17 09:30 Dose: 325 mg Atorvastatin Calcium (Lipitor) 80 mg PO DAILY [facility] PRN Reason: Protocol Stop: 01/29/18 08:59 Last Admin: 12/10/17 09:30 Dose: 80 mg Benazepril HCl (Lotensin) 20 mg PO DAILY [facility] Stop: 01/29/18 08:59 Last Admin: 12/10/17 09:31 Dose: 20 mg Ferrous Sulfate (Iron) 325 mg PO DAILY [facility] Stop: 01/29/18 08:59 Last Admin: 12/10/17 09:30 Dose: 325 mg Insulin Aspart (Novolog Insulin Sliding Scale) 0 units SUBQ ACHS [place] PRN Reason: Protocol Stop: 01/29/18 07:29 Last Admin: 12/10/17 11:49 Dose: 2 units Ipratropium [place] (Atrovent Neb 0.5mg/2.5ml) 0.5 mg HHN Q4HRT PRN PRN Reason: Shortness of Breath Stop: 01/28/18 23:13 Lactobacillus Rhamnosus (Culturelle 15b) 1 each PO DAILY [facility] Stop: 12/14/17 11:00 Last Admin: 12/10/17 09:30 Dose: 1 each Lorazepam (Ativan) 0.5 mg PO Q4HR PRN; Protocol PRN Reason: Anxiety Stop: 12/29/17 23:11 Last Admin: 12/08/17 04:23 Dose: 0.5 mg Magnesium Hydroxide (Milk Of Magnesia) 30 ml PO HS PRN PRN Reason: Constipation Metformin HCl (Glucophage) 1,000 mg PO BID [facility] Stop: 01/29/18 08:59 Last Admin: 12/10/17 09:30 Dose: 1,000 mg Mirtazapine (Remeron) 7.5 mg PO HS [facility] PRN Reason: Protocol Stop: 02/01/18 20:59 Last Admin: 12/09/17 21:19 Dose: 7.5 mg Miscellaneous (Probiotic Screen) 1 ea MC PRN PRN PRN Reason: PROTOCOL Stop: 01/31/18 10:14 Multivitamins/Vitamin C (Theragran) 1 tab PO DAILY [facility] Stop: 01/29/18 08:59 Last Admin: 12/10/17 09:30 Dose: 1 tab Risperidone (Risperdal) 1 mg PO TID [facility] PRN Reason: Protocol Stop: 02/02/18 13:59 Last Admin: 12/10/17 09:30 Dose: 1 mg Zolpidem Tartrate (Ambien) 5 mg PO HS PRN PRN Reason: Insomnia Stop: 01/28/18 23:11 Last Admin: 12/09/17 21:20 Dose: 5 mg General: demented HEENT: NC/AT, PERRLA Neck: Supple Lungs: CTAB Cardiovascular: RRR, Normal S1, Normal S2, without murmur Abdomen: soft, non-tender, non-distended, positive bowel sound Extremities: excoriation Neurological: alert Internal Medicine Assmt/Plan - Assessment Assessment: acute uti psychosis diabetes peripheral neuropathy - Plan Plan: fall precautions monitor glucose level continue current plan of care Nutritional Asmnt/Malnutr-PDOC - Dietary Evaluation Malnutrition Findings (Please click <Entered> for more info): Nutritional Asmnt/Malnutrition Start: 11/30/17 15: 26 Text: Status: Complete Freq: Document 11/30/17 15:26 LCRAZAG (Rec: 11/30/17 15:38 LCRAZAG [email or web address]) Nutritional Asmnt/Malnutrition Patient General Information Nutritional Screening High Risk Diagnosis psychosis Pertinent Medical Hx/Surgical Hx bipolar, schzophreania, laparotomy for wallowing half a scissor Subjective Information Pt seen sitting in bed just finished her lunch tray at time of visit. Pt reported good appetite, likes roast beef, meatlaof, fruit, but no chicken. Spoke with RN, pt consumed 100% of breakfast this morning. Current Diet Order/ Nutrition Support [facility] low sodium, low cholersterol Pertinent Medications iron, novolog, glucophage, theragran Pertinent Labs 11/29 Na 132, K 3.3, Cl 98, BUN 18, Cr 0.6, Glucose 289, A1c 11.7, Mg 1.5, AST 7, ALT 7, Alb 3.3 11/30 POC 287 Nutritional Hx/Data Height 5 ft 5 in Height (Calculated Centimeters) 165.1 Current Weight (lbs) 150 lb Weight (Calculated Kilograms) 68.0 Weight (Calculated Grams) 22032.9 [place] Body Weight 125 % [place] Body Weight 120 Body Mass Index (BMI) 25.0 Weight Status Overweight GI Symptoms GI Symptoms None Last BM none Difficult in: None Skin Integrity/Comment: intact Estimated Nutritional Goals Calories/Kcals/Kg 25-30 Kcals Calculated 2804-2525 based on IBW 57kg Protein g/k-1.2 Protein Calculated 57-68 Fluid: ml 1425-1710ml (1ml/kcal) Nutritional Problem 1. Problem Problem altered nutritin related lab values Etiology endocrine dysfunction and possible excessive carbohydrates intake Signs/Symptoms: Glucose 289, A1c 11.7, POC 287 Malnutrition Alert Protein-Calorie Malnutrition N/A Is there a minimum of two criteria No selected? Query Text:Check all the applicable criteria. A minimum of two criteria are recommended for diagnosis of either severe or non-severe malnutrition. Intervention/Recommendation Comments 1. Continue with [facility] diet as ordered. Encourage to limit carbohyrates intake and avoid sugar added food. Pt verbalized understanding and will follow the diet. 2. Monitor PO intake, wt, labs and skin integrity 3. F/U as low risk in 7 days, 12/07 Expected Outcomes/Goals Expected Outcomes/Goals 1. PO intake to meet at least 75% of nutritional needs. 2. Wt stability, skin to remain intact, labs to approach WNL.
--- NOTE | 2017-12-10 16:57 | Progress Notes ---
DATE: 12/09/2017 SUBJECTIVE: The patient was seen, chart reviewed, discussed with staff. The patient seems to be improved, calm, cooperative, linear, more engaged, no SI, no HI. No psychotic symptoms, somewhat ruminative and restless, wants to leave. However, we have no place to send her. She is unable to care for her basic needs. We have been trying to get in touch with room and board, but to no avail or answer. Medications reviewed. No side effects. ASSESSMENT: The patient linear, more engaged, seems to be improving. PLAN: Currently pending placement. JOB# [id number]
--- NOTE | 2017-12-10 22:49 | Progress Notes ---
DATE: 12/10/2017 Case was discussed with staff of the patient, reviewed records. Covering for Dr. Cotto. The patient actually has already an order for discharge by Dr. Cotto. The patient has been stable. When I talked to her, she is sleeping well, eating well, so that is an addendum to the discharge summary that was done yesterday. She denies any current intent to harm herself or anybody. She denies any auditory or visual hallucinations. She is going to a board and care and everything is set for her to be discharged, so I do not see any reason not to discharge her at this point. The patient will follow up with the psychiatrist and primary care physician. Discharge diagnosis and plan as per Dr. Cotto. JOB# [id number]
== END 2017-12-10 12:15 | disposition home or self-care (01) | DRG 885 ==
LOC: ER 16:12 → GERO 21:20
PROVIDERS: ADMIT Psychiatry & Neurology Psychiatry; ATTEND Psychiatry & Neurology Psychiatry
DX: F20.9 Schizophrenia, unspecified (principal); E11.42 Type 2 diabetes mellitus with diabetic polyneuropathy; I11.9 Hypertensive heart disease without heart failure; E87.1 Hypo-osmolality and hyponatremia; N39.0 Urinary tract infection, site not specified; E87.6 Hypokalemia; E78.00 Pure hypercholesterolemia, unspecified; D64.9 Anemia, unspecified; F29 Unspecified psychosis not due to a substance or known physiological condition; F17.210 Nicotine dependence, cigarettes, uncomplicated; F39 Unspecified mood [affective] disorder; F41.9 Anxiety disorder, unspecified; R53.1 Weakness; R62.7 Adult failure to thrive; J44.9 Chronic obstructive pulmonary disease, unspecified; Z82.49 Family history of ischemic heart disease and other diseases of the circulatory system; Z88.2 Allergy status to sulfonamides; Z88.8 Allergy status to other drugs, medicaments and biological substances
CPT/HCPCS: 36415-UA; 71045-TC; 80048-TC; 80053-TC; 80061-TC; 81001-TC; 82948-90; 83036-90; 83735-TC; 83880-TC; 84443-TC; 84484-TC; 85025-TC; 86141-TC; 86592-TC; 87086-90; 93005; 93970-TC-50; 94760; G0410; J1815; J1956; J3475; Z7610